=== PATIENT | female | born 1965 | race Caucasian/White ===

== ENCOUNTER → 2019-01-14 10:25 | Outpatient (CLI) | payer MEDICARE, SELFPAY ==
[2019-01-14 10:00] VITALS: BMI 38.5
[2019-01-14 12:10] LABS: Absolute Lymphocyte Count 1.38 X10^3/uL (0.83-4.51); Absolute Neutrophil Count 4.5 X10^3/uL (2.0-7.7); Basophil# 0.03 X10^3/uL; Basophil% 0.5 % (0-1); Eosinophils% 1.6 % (0-5); Hematocrit 41.2 % (37-47); Hemoglobin 12.6 g/dL (12.0-15.0); Lymphocyte # 1.38 X10^3/ul (4.0); Lymphocyte % 21.6 % (19-41); Mean Corp Hgb Conc 30.6 g/dL (32-36); Mean Corpuscular Hgb 25.6 pg (27.0-32.0); Mean Corpuscular Volume 83.7 fL (81-99); Mean Platelet Vol. 10.6 fl (6.2-12.0); Monocyte# 0.34 X10^3/uL; Monocyte% 5.3 % (0-10); NRBC Flagged by Analyzer 0 % (0-5); Neutrophil # 4.52 X10^3/uL (2.7-7.7); Neutrophil % 70.7 % (47-70); Platelet Count 323 K/mm3 (150-450); RBC Distribution Width CV 14.6 % (11.6-14.6); RBC Distribution Width SD 44.4 fl (35.1-43.9); Red Blood Count 4.92 M/mm3 (4.2-5.4); White Blood Count 6.4 K/mm3 (4.4-11.0)
[2019-01-14 12:38] LABS: ALB/GLOB Ratio 0.7 RATIO (0.9-2.4); AST(SGOT) 24 U/L (15-37); Alanine Aminotransfer ALT/SGPT 37 U/L (13-56); Albumin, Serum 3.6 g/dL (3.2-5.0); Alkaline Phosphatase 93 U/L (45-117); Anion Gap 7 (5-15); BUN 8 mg/dL (7-18); BUN/Creat Ratio 11.8 RATIO (10-20); Calcium,Total 9.3 mg/dL (8.5-10.1); Chloride 102 mmol/L (98-107); Cholesterol 249 mg/dL (200); Creatinine, Serum 0.68 mg/dL (0.55-1.02); EST Glomerular Filtration Rate 96 mL/min (>60); Est Glom Filt Rate - Afr Amer 117 mL/min (>60); Glucose 107 mg/dL (74-106); High Density Lipoprotein 70 mg/dL; Potassium 3.7 mmol/L (3.5-5.1); Protein, Total 8.6 g/dL (6.4-8.2); Sodium Level 138 mmol/L (136-145); Triglycerides 191 mg/dL; Very Low Density Lipoprotein 38 mg/dL (5-40)
== END ==
PROVIDERS: PCP Internal Medicine; Visit Provider Internal Medicine
DX: I10 Essential (primary) hypertension (principal); G47.30 Sleep apnea, unspecified; E66.9 Obesity, unspecified
CPT/HCPCS: 36415; 80053; 80061; 85025

== ENCOUNTER → 2019-01-26 09:57 | Outpatient (CLI) | payer MEDICARE, SELFPAY ==
[2019-01-14 10:00] VITALS: BMI 38.5
--- NOTE | 2019-01-26 10:01 | EKG12_ITS ---
Test Reason : Blood Pressure : / mmHG Vent. Rate : 079 BPM Atrial Rate : 079 BPM P-R Int : 142 ms QRS Dur : 084 ms QT Int : 382 ms P-R-T Axes : 024 008 028 degrees QTc Int : 438 ms Normal sinus rhythm Normal ECG Confirmed by DALIA MICHELE, CRISTINA ([id number]), assignment desk editor BONNIE CHRISTIAN ([id number]) on 01/27/2019 9:49:43 AM Referred By: Esme Beckman Confirmed By:CRISTINA GÓMEZ MD
== END ==
PROVIDERS: Family Provider Internal Medicine; PCP Internal Medicine; Referring Provider Internal Medicine; Visit Provider Internal Medicine
DX: G47.10 Hypersomnia, unspecified (principal); I10 Essential (primary) hypertension
CPT/HCPCS: 93005; 95810

== ENCOUNTER 2019-02-03 15:30 | Outpatient (RCR) | payer MEDICARE, SELFPAY ==
[2019-01-14 10:00] VITALS: BMI 38.5
--- NOTE | 2019-02-03 16:15 | HP.PTEVAL_ITS ---
Patient's Visit Information EDNA MELÉNDEZ is a 53 year old F referred to Physical Therapy by Esme Beckman MD with a diagnosis of Bilateral Knee Pain. Date of Evaluation: 02/03/19 Physical Therapist: Itzel Forte DPT - Visit Plan Frequency: 2x /Week Duration: 4 Weeks Plan: Aquatics: focus on LE and core s.s - Subjective Findings: She has has knee pain for a long time- they are about the same. Insidous onset- had x-rays which showed OA. Pain is located around the whole knee- no radiating pain. Describes the pain as dull and achy. Agg: walking to much, sitting to long. Worst: 8/10. Eases: pillow between knees at night. Best: 0/10. Better in the AM. Sleep: disturbed- side sleeper- pillow between the knees. Has had therapy on her knees but not recently. Work: does not work- on disability. She reports that she is on the couch a lot and does not move a lot. X-rays taken of both knees but it has been awhile. Has not had injections in her knees. They talked about Gel shots but they have not taken it any further. PMHx/Meds no changes since scanned in chart. - Objective Posture: FH, RS- can correct but does not maintain. Gait: slight deviation. decreased heel/toe pattern- decreased epifanio. Stairs: asc/desc recip with 2 HR- significant use of HR for ascent for propulsion and poor control with descent. HR/TR: able with UE A for balance reports pain with both. SLS: 2-3 seconds bilaterally and reports pain. Palpation: tender along medial and lateral joint lines bilaterally- medial>lateral. ROM: Left 10-110 degrees Right: 15-115 degrees-reports pain at end range flexion. Strength: Core: poor. Hip: flexion/abd: 4/5, IR/ER: 3+/5, Extn: 4+/5, Add: 4+/5, Knee: 4/5, Ankle: 5/5. Required multiple attempts to follow directions and give appropriate resistance to testing. Flex: HS: severe, Gastroc: moderate. Special Test: Lakeisha: positive bilaterally - Goals Goal 1:: Patient will be I with HEP and progression Goal Time Frame: 4-6 Weeks Goal 2:: Patient will ambulate with a normalized gait pattern Goal Time Frame: 4-6 Weeks Goal 3:: Patient will SLS for 10 sec bilaterally Goal Time Frame: 4-6 Weeks Goal 4:: Patient will report no more than 5/10 pain bilaterally Goal Time Frame: 4-6 Weeks - Rehabilitation Potential Physical Therapy Diagnosis: Patient presents with hypomobility- she has decr eased ROM, strength and muscular endurance leading to increased pain with ADL's. Rehabilitation Potential: Fair - Anticipated Interventions Therapeutic Exercise to Include: Strength training, Endurance training, Balance training, Agility training, Body mechanics, Postural training, Flexibilty training, Gait and locomotor training, In an aquatic setting, Dynamic Lumbar Stabilization For the Purpose of:: To improve muscle performance and motor function, To improve ability to perform ADL's Thank you for the opportunity to evaluate your patient. For Medicare and Medicare HMO plans, please review the plan of care and approve it. It will need to be FAXED BACK to us at [phone] for Medicare purposes. For Medicare only, by signing this I certify the plan of care. Please let me know if there are questions or concerns regarding this plan of care. Physician Signature: Date:
== END 2019-02-03 19:00 | disposition home or self-care (01) ==
LOC: PT 15:30
PROVIDERS: Family Provider Internal Medicine; PCP Internal Medicine; Referring Provider Internal Medicine; Visit Provider Internal Medicine
DX: M19.90 Unspecified osteoarthritis, unspecified site (principal)
CPT/HCPCS: 97161

== ENCOUNTER → 2019-03-24 20:05 | Outpatient (CLI) | payer MEDICARE, MEDICAID, SELFPAY ==
[2019-01-14 10:00] VITALS: BMI 38.5
== END ==
PROVIDERS: Family Provider Internal Medicine; PCP Internal Medicine; Referring Provider Psychiatry & Neurology Psychiatry; Visit Provider Psychiatry & Neurology Psychiatry
DX: G47.33 Obstructive sleep apnea (adult) (pediatric) (principal); I10 Essential (primary) hypertension; I44.7 Left bundle-branch block, unspecified; E88.81 Metabolic syndrome and other insulin resistance; F32.9 Major depressive disorder, single episode, unspecified; F41.9 Anxiety disorder, unspecified; E66.01 Morbid (severe) obesity due to excess calories; Z68.38 Body mass index [BMI] 38.0-38.9, adult
CPT/HCPCS: 95811

== ENCOUNTER → 2019-06-03 11:14 | Outpatient (CLI) | payer MEDICARE, SELFPAY ==
[2019-06-02 12:54] VITALS: BMI 38.5
[2019-06-03 12:43] LABS: Hemoglobin A1c 5.7 % (4.2-6.3)
[2019-06-03 12:53] LABS: ALB/GLOB Ratio 0.8 RATIO (0.9-2.4); AST(SGOT) 23 U/L (15-37); Alanine Aminotransfer ALT/SGPT 35 U/L (13-56); Albumin, Serum 3.6 g/dL (3.2-5.0); Alkaline Phosphatase 87 U/L (45-117); Anion Gap 7 (5-15); BUN 12 mg/dL (7-18); BUN/Creat Ratio 20.3 RATIO (10-20); Calcium,Total 9.4 mg/dL (8.5-10.1); Chloride 101 mmol/L (98-107); Cholesterol 266 mg/dL (200); Creatinine, Serum 0.59 mg/dL (0.55-1.02); EST Glomerular Filtration Rate 113 mL/min (>60); Est Glom Filt Rate - Afr Amer 137 mL/min (>60); Globulin 4.8 g/dL (2.2-4.2); Glucose 90 mg/dL (74-106); High Density Lipoprotein 67 mg/dL; Potassium 3.8 mmol/L (3.5-5.1); Protein, Total 8.4 g/dL (6.4-8.2); Sodium Level 137 mmol/L (136-145); T4 Free Direct 0.95 ng/dL (0.76-1.46); Thyroid Stim Hormone (TSH) 1.08 uIU/mL (0.358-3.74); Triglycerides 201 mg/dL; Very Low Density Lipoprotein 40 mg/dL (5-40)
== END ==
PROVIDERS: PCP Internal Medicine; Referring Provider Internal Medicine Endocrinology, Diabetes & Metabolism; Visit Provider Internal Medicine Endocrinology, Diabetes & Metabolism
DX: I10 Essential (primary) hypertension (principal); E78.2 Mixed hyperlipidemia; E04.2 Nontoxic multinodular goiter; R73.09 Other abnormal glucose
CPT/HCPCS: 36415; 80053; 80061; 83036; 84439; 84443

== ENCOUNTER → 2019-06-05 12:44 | Outpatient (CLI) | payer MEDICARE, SELFPAY ==
[2019-06-02 12:54] VITALS: BMI 38.5
== END ==
PROVIDERS: PCP Internal Medicine; Referring Provider Nurse Practitioner Acute Care; Visit Provider Nurse Practitioner Acute Care
DX: G47.10 Hypersomnia, unspecified (principal)

== ENCOUNTER → 2019-06-08 12:26 | Outpatient (CLI) | payer MEDICARE, SELFPAY ==
[2019-06-02 12:54] VITALS: BMI 38.5
--- NOTE | 2019-08-04 11:10 | US_ITS ---
STUDY: THYROID ULTRASOUND REASON FOR EXAM: Female, 53 years old. NODULE -- PREVIOUS FILMS DONE AT [facility] NOT AVAILABLE TECHNIQUE: Ultrasound evaluation of the thyroid was performed with real-time and static minor-scale imaging. COMPARISON: None. FINDINGS: RIGHT LOBE: The right lobe of the thyroid gland is enlarged and measures 5.7 cm x 1.9 cm x 1.6 cm. There is a homogeneous echotexture. 2 nodules are seen within the right lobe. There is a 6 mm x 6 mm x 4 mm solid nodule in the midportion of the lobe. A solid and cystic nodule measuring 6 mm x 5 mm x 5 mm is also seen in the lower lobe. LEFT LOBE: The left lobe of the thyroid gland is enlarged and measures 6.5 cm x 4.5 cm x 4.1 cm. There is a heterogeneous echotexture. There is a dominant hypoechoic solid nodule in the midpole of the left lobe measuring 5.6 cm x 4.6 cm by 3.5 cm. ISTHMUS: The isthmus measures 5 mm. The regional lymph nodes are normal. US/Thyroid IMPRESSION: Complex solid nodule in the left lobe of the thyroid measuring 5.6 cm x 4.6 cm x 3.5 cm. Biopsy recommended. 2. Subcentimeters nodules in the right lobe. Electronically Signed: Stew Vasquez, at 15:21 EDT , Service support ,
== END ==
PROVIDERS: PCP Internal Medicine; Referring Provider Nurse Practitioner Acute Care; Visit Provider Nurse Practitioner Acute Care
DX: G47.10 Hypersomnia, unspecified (principal)

== ENCOUNTER → 2019-08-04 10:56 | Outpatient (CLI) | payer MEDICARE, MEDICAID, SELFPAY ==
[2019-06-02 12:54] VITALS: BMI 38.5
== END ==
PROVIDERS: PCP Internal Medicine; Referring Provider Internal Medicine; Visit Provider Internal Medicine
DX: E04.2 Nontoxic multinodular goiter (principal)
CPT/HCPCS: 76536

== ENCOUNTER → 2020-07-08 12:35 | Outpatient (CLI) | payer MEDICARE, MEDICAID, SELFPAY ==
[2019-06-02 12:54] VITALS: BMI 38.5
--- NOTE | 2020-07-08 12:39 | BI_ITS ---
MAMMOGRAPHY - BILATERAL SCREENING REASON FOR EXAM: Female, 54 years old. Routine annual screening examination. 2-3 week history of breast lumps in the upper outer quadrant of the left breast. PERTINENT HISTORY: Non-contributory. TECHNIQUE: Digital bilateral breast portia (3D mammographic acquisition) in the CC and MLO projections. 2-D mediolateral oblique (MLO) and craniocaudad (CC) views of both breasts were obtained. CAD: Full Field Digital Mammography with Computer Added Detection was performed. COMPARISON: No comparison mammograms available at this time. If any prior films become available, an addendum to this report can be generated. FINDINGS: Breast Composition: There are scattered areas of fibroglandular density. There is a 1 cm nodule in the retroareolar region of the left breast. Correlation with ultrasound is recommended. No other significant abnormalities are identified. BI/SCRN MAMM (CAD)W/PORTIA BILAT IMPRESSION: 1 cm nodule in the retroareolar region of the left breast as described. Correlation with ultrasound is recommended. ASSESSMENT CATEGORY: BIRADS Category 0: Incomplete. Need additional imaging evaluation. A letter regarding these results will be sent to the patient by the facility within 30 days. Approximately 10% of breast cancers are not detected by mammography. A normal mammogram should not delay biopsy of a clinically suspicious abnormality. [id number] Electronically Signed: Stew Vasquez MD at 14:00 EDT , Service support ,
== END ==
PROVIDERS: PCP Internal Medicine; Referring Provider Internal Medicine Endocrinology, Diabetes & Metabolism; Visit Provider Internal Medicine Endocrinology, Diabetes & Metabolism
DX: Z12.31 Encounter for screening mammogram for malignant neoplasm of breast (principal); N63.20 Unspecified lump in the left breast, unspecified quadrant
CPT/HCPCS: 77063; 77067

== ENCOUNTER → 2020-07-11 14:50 | Outpatient (CLI) | payer MEDICARE, MEDICAID, SELFPAY ==
[2019-06-02 12:54] VITALS: BMI 38.5
--- NOTE | 2020-07-11 14:54 | US_ITS ---
STUDY: ULTRASOUND BREAST - LEFT REASON FOR EXAM: Female, 54 years old. Abnormal screening mammogram. TECHNIQUE: Axial and longitudinal images of the LEFT breast were performed with a high resolution ultrasound transducer. # OF IMAGES: 11 COMPARISON: Comparison is made with prior mammogram dated 07/08/2020. FINDINGS: LEFT Breast: The mammographic abnormality corresponds to a 1.6 cm x 1.1 cm x 0.8 cm slightly irregular hypoechoic nodule with some posterior acoustical shadowing. This is at the 6 o''clock position of the breast at 2 cm from nipple. Biopsy is recommended. US/Breast Limited Unilateral IMPRESSION: 1.6 cm x 1.1 cm x 0.8 cm slightly irregular hypoechoic nodule with posterior acoustical shadowing at the 6 o''clock position of the breast at 2 cm from the nipple. A biopsy recommended. ASSESSMENT CATEGORY: BIRADS Category 4: Suspicious - Biopsy Should Be Considered. A letter regarding these results will be sent to the patient by the facility within 30 days. Electronically Signed: Stew Vasquez MD at 15:36 EDT , Service support ,
== END ==
PROVIDERS: PCP Internal Medicine; Referring Provider Internal Medicine Endocrinology, Diabetes & Metabolism; Visit Provider Internal Medicine Endocrinology, Diabetes & Metabolism
DX: N63.20 Unspecified lump in the left breast, unspecified quadrant (principal); R92.8 Other abnormal and inconclusive findings on diagnostic imaging of breast
CPT/HCPCS: 76642

== ENCOUNTER → 2020-07-14 | Outpatient (CLI) | payer MEDICARE, MEDICAID, SELFPAY ==
--- NOTE | 2020-07-14 | BRBX_PTH ---
PATIENT: EDNA CAMACHO LOC: [place] U#:[id number] AGE/SX: 54/F ROOM: RE07/14/[address]: Dr. Corie Bell MD : 1965 BED: DIS: 07/14/2020 SPEC #: [id number] RECD: 07/14/20 15:23 STATUS: TORIE KIRILL #: [id number] FREDY: 07/14/20 00:[address]: Corie Bell DEPT: SURGICAL PATHOLOGY RECD BY: Fortunato Simmons ENTERED: 07/15/20 08:15 SP TYPE: BREAST BX OT DR: Dr. Esme Beckman MD Tissues: Left breast, NOS Procedures: Surgery Specimen Level IV HEADER OPERATION: Left breast biopsy PRE-OP DIAGNOSIS: Left breast mass TISSUE SUBMITTED: Left breast tissue 6 o?clock, 2 cm from nipple MICROSCOPIC DIAGNOSIS Left breast mass, 6 o?clock, 2 cm from nipple, core biopsy: Consistent with fragments of intraductal papilloma with fibrocystic changes and intraductal hyperplasia with focal atypia. See comment. JERI:lorene 07/18/2020 COMMENT Correlation with clinical, radiologic findings and appropriate follow up are necessary. Case has been reviewed in consultation with Dr. Villeda who concurs with the above diagnosis. IDC:AM MICROSCOPIC DESCRIPTION Slides are reviewed. GROSS DESCRIPTION Received in fixative is one container labeled with the patient name and designated left breast. The specimen consists of multiple elongated fragments of edwards-yellow fibroadipose tissue that in aggregate measure 1 x 0.2 x 0.1 cm. The entire specimen is submitted in one cassette. / JERI:lorene 07/15/20 TC:5 CPT: 07718
[2020-07-14 10:07] VITALS: BMI 39.6
== END | disposition home or self-care (01) ==
LOC: LABSPEC 15:52
PROVIDERS: PCP Internal Medicine; Referring Provider Surgery; Visit Provider Surgery
DX: D24.2 Benign neoplasm of left breast (principal)
CPT/HCPCS: 88305

== ENCOUNTER → 2020-09-14 | Outpatient (CLI) | payer MEDICARE, MEDICAID, SELFPAY ==
[2020-09-14 11:23] VITALS: BMI 40.6
== END | disposition home or self-care (01) ==
PROVIDERS: PCP Internal Medicine; Visit Provider Physician Assistant
DX: L08.9 Local infection of the skin and subcutaneous tissue, unspecified (principal); B95.8 Unspecified staphylococcus as the cause of diseases classified elsewhere
CPT/HCPCS: 87070; 87077; 87186; 87205

== ENCOUNTER → 2020-11-01 11:27 | Outpatient (CLI) | payer MEDICARE, MEDICAID, SELFPAY ==
[2020-11-01 12:13] LABS: Absolute Lymphocyte Count 1.48 X10^3/uL (0.83-4.51); Absolute Neutrophil Count 3.9 X10^3/uL (2.0-7.7); Basophil# 0.03 X10^3/uL; Basophil% 0.5 % (0-1); Eosinophil# 0.08 X10^3/uL; Eosinophils% 1.4 % (0-5); Hemoglobin 10.9 g/dL (12.0-15.0); Lymphocyte # 1.48 X10^3/ul (0.83-4.51); Lymphocyte % 25.3 % (19-41); Mean Corp Hgb Conc 29.5 g/dL (32-36); Mean Corpuscular Hgb 22.5 pg (27.0-32.0); Mean Corpuscular Volume 76.3 fL (81-99); Mean Platelet Vol. 9.9 fl (6.2-12.0); Monocyte# 0.34 X10^3/uL; Monocyte% 5.8 % (0-10); NRBC Flagged by Analyzer 0 % (0-5); Neutrophil # 3.91 X10^3/uL (2.7-7.7); Neutrophil % 66.8 % (47-70); Platelet Count 384 K/mm3 (150-450); RBC Distribution Width CV 17.9 % (11.6-14.6); RBC Distribution Width SD 48.5 fl (35.1-43.9); Red Blood Count 4.85 M/mm3 (4.2-5.4); White Blood Count 5.9 K/mm3 (4.4-11.0)
[2020-11-01 12:50] LABS: ALB/GLOB Ratio 0.8 RATIO (0.9-2.4); AST(SGOT) 15 U/L (15-37); Alanine Aminotransfer ALT/SGPT 30 U/L (13-56); Albumin, Serum 3.6 g/dL (3.2-5.0); Alkaline Phosphatase 76 U/L (45-117); Anion Gap 6 (5-15); BUN 13 mg/dL (7-18); BUN/Creat Ratio 25.3 RATIO (10-20); Calcium,Total 9.1 mg/dL (8.5-10.1); Chloride 105 mmol/L (98-107); Cholesterol 232 mg/dL (200); Creatinine, Serum 0.51 mg/dL (0.55-1.02); EST Glomerular Filtration Rate 132 mL/min (>60); Est Glom Filt Rate - Afr Amer 160 mL/min (>60); Globulin 4.6 g/dL (2.2-4.2); Glucose 91 mg/dL (74-106); High Density Lipoprotein 68 mg/dL; Potassium 3.7 mmol/L (3.5-5.1); Protein, Total 8.2 g/dL (6.4-8.2); Sodium Level 137 mmol/L (136-145); Triglycerides 153 mg/dL; Very Low Density Lipoprotein 31 mg/dL (5-40)
[2020-11-01 16:57] LABS: Ferritin 9 ng/mL (8-252); Iron 37 ug/dL (50-170); Iron Binding Capacity,Total 411 ug/dL (250-450)
== END ==
PROVIDERS: PCP Internal Medicine; Referring Provider Internal Medicine; Visit Provider Internal Medicine
DX: I10 Essential (primary) hypertension (principal); D64.9 Anemia, unspecified
CPT/HCPCS: 36415; 80053; 80061; 82728; 83540; 83550; 85025

== ENCOUNTER → 2020-12-27 11:14 | Outpatient (CLI) | payer MEDICARE, MEDICAID, SELFPAY ==
--- NOTE | 2020-12-27 11:17 | US_ITS ---
STUDY: THYROID ULTRASOUND REASON FOR EXAM: Female, 55 years old. Thyroid Nodules TECHNIQUE: Ultrasound evaluation of the thyroid was performed with real-time and static minor-scale imaging. COMPARISON: 08/04/2019 FINDINGS: RIGHT LOBE: The right lobe of the thyroid gland measures 2.6 x 2.0 x 1.4 cm. There is a heterogeneous echotexture. Nodule 1: No change in the 7 x 6 x 3 mm mixed cystic and solid hypoechoic wider than tall smoothly marginated nodule in no echogenic foci (TR 3) in the anterior right lobe consistent with an adenoma. Nodule 2: No change in a 4 x 6 x 6 mm solid hypoechoic wider than tall smoothly marginated nodule with no echogenic foci (TR 4) in the posterior right lobe consistent with an adenoma. LEFT LOBE: The left lobe of the thyroid gland measures 6.5 x 5.5 x 3.9 cm. There is a heterogeneous echotexture. Nodule 3: No change in this 60 x 32 x 42 mm mixed cystic and solid isoechoic water than tall smoothly marginated nodule and no echogenic foci (TR 3) in the left lobe for which ultrasound-guided biopsy is recommended if never performed. ISTHMUS: The isthmus measures 4 mm thick. . The regional lymph nodes are normal. US/Thyroid IMPRESSION: No change in multinodular thyroid gland with a dominant nodule in left lobe for which ultrasound-guided biopsy is recommended if never performed. Follow-up ultrasound is recommended in 1 year. Electronically Signed: Royce Lino MD at 10:48 EDT Tel , Service support ,
== END ==
PROVIDERS: PCP Internal Medicine; Referring Provider Internal Medicine; Visit Provider Internal Medicine
DX: E04.2 Nontoxic multinodular goiter (principal)
CPT/HCPCS: 76536

== ENCOUNTER → 2022-03-02 | Outpatient (CLI) | payer MEDICARE, MEDICAID, SELFPAY ==
[2022-03-02 12:28] LABS: Absolute Lymphocyte Count 1.32 X10^3/uL (0.83-4.51); Absolute Neutrophil Count 4.1 X10^3/uL (2.0-7.7); Basophil# 0.05 X10^3/uL; Basophil% 0.9 % (0-1); Eosinophil# 0.08 X10^3/uL; Eosinophils% 1.4 % (0-5); Hematocrit 35.8 % (37-47); Hemoglobin 10.6 g/dL (12.0-15.0); Lymphocyte # 1.32 X10^3/ul (0.83-4.51); Lymphocyte % 22.6 % (19-41); Mean Corp Hgb Conc 29.6 g/dL (32-36); Mean Corpuscular Volume 74.3 fL (81-99); Mean Platelet Vol. 9.4 fl (6.2-12.0); Monocyte# 0.32 X10^3/uL; Monocyte% 5.5 % (0-10); NRBC Flagged by Analyzer 0 % (0-5); Neutrophil # 4.07 X10^3/uL (2.7-7.7); Neutrophil % 69.4 % (47-70); Platelet Count 421 K/mm3 (150-450); RBC Distribution Width CV 16.6 % (11.6-14.6); Red Blood Count 4.82 M/mm3 (4.2-5.4); White Blood Count 5.9 K/mm3 (4.4-11.0)
[2022-03-02 13:04] LABS: ALB/GLOB Ratio 0.8 RATIO (0.9-2.4); AST(SGOT) 18 U/L (15-37); Alanine Aminotransfer ALT/SGPT 29 U/L (13-56); Albumin, Serum 3.5 g/dL (3.2-5.0); Alkaline Phosphatase 85 U/L (45-117); Anion Gap 2 (5-15); BUN 11 mg/dL (7-18); BUN/Creat Ratio 16.2 RATIO (10-20); Calcium,Total 9.4 mg/dL (8.5-10.1); Chloride 106 mmol/L (98-107); Cholesterol 247 mg/dL (200); Creatinine, Serum 0.68 mg/dL (0.55-1.02); EST Glomerular Filtration Rate 95 mL/min (>60); Est Glom Filt Rate - Afr Amer 115 mL/min (>60); Globulin 4.6 g/dL (2.2-4.2); Glucose 119 mg/dL (74-106); High Density Lipoprotein 67 mg/dL; Potassium 3.7 mmol/L (3.5-5.1); Protein, Total 8.1 g/dL (6.4-8.2); Sodium Level 138 mmol/L (136-145); Triglycerides 130 mg/dL; Very Low Density Lipoprotein 26 mg/dL (5-40)
[2022-03-02 14:01] LABS: Ferritin 6 ng/mL (8-252); Iron 27 ug/dL (50-170); Iron Binding Capacity,Total 429 ug/dL (250-450); PERCENT IRON SATURATION 6.3 % (15.0-55.0)
== END | disposition home or self-care (01) ==
LOC: BIMLAB 11:26
PROVIDERS: PCP Internal Medicine; Referring Provider Physician Assistant; Visit Provider Physician Assistant
DX: I10 Essential (primary) hypertension (principal); E78.5 Hyperlipidemia, unspecified; D64.9 Anemia, unspecified
CPT/HCPCS: 36415; 80053; 80061; 82728; 83540; 83550; 84443; 85025

== ENCOUNTER → 2023-03-11 | Outpatient (CLI) | payer MEDICARE, MEDICAID, SELFPAY ==
[2023-03-11 15:34] LABS: Absolute Lymphocyte Count 1.43 X10^3/uL (0.83-4.51); Absolute Neutrophil Count 5.2 X10^3/uL (2.0-7.7); Basophil# 0.03 X10^3/uL; Basophil% 0.4 % (0-1); Eosinophil# 0.09 X10^3/uL; Eosinophils% 1.3 % (0-5); Hematocrit 36.5 % (37-47); Hemoglobin 10.8 g/dL (12.0-15.0); Lymphocyte # 1.43 X10^3/ul (0.83-4.51); Lymphocyte % 20.2 % (19-41); Mean Corp Hgb Conc 29.6 g/dL (32-36); Mean Corpuscular Hgb 22.5 pg (27.0-32.0); Mean Corpuscular Volume 76.2 fL (81-99); Mean Platelet Vol. 9.8 fl (6.2-12.0); Monocyte# 0.34 X10^3/uL; Monocyte% 4.8 % (0-10); NRBC Flagged by Analyzer 0 % (0-5); Neutrophil # 5.16 X10^3/uL (2.7-7.7); Neutrophil % 72.9 % (47-70); Platelet Count 416 K/mm3 (150-450); RBC Distribution Width CV 17.5 % (11.6-14.6); RBC Distribution Width SD 48.3 fl (35.1-43.9); Red Blood Count 4.79 M/mm3 (4.2-5.4); White Blood Count 7.1 K/mm3 (4.4-11.0)
[2023-03-11 16:20] LABS: ALB/GLOB Ratio 0.8 RATIO (0.9-2.4); AST(SGOT) 19 U/L (15-37); Alanine Aminotransfer ALT/SGPT 27 U/L (13-56); Albumin, Serum 3.5 g/dL (3.2-5.0); Alkaline Phosphatase 83 U/L (45-117); Anion Gap 6 (5-15); BUN 12 mg/dL (7-18); Calcium,Total 8.8 mg/dL (8.5-10.1); Chloride 105 mmol/L (98-107); Cholesterol 235 mg/dL (200); Creatinine, Serum 0.86 mg/dL (0.55-1.02); EST Glomerular Filtration Rate 72 mL/min (>60); Est Glom Filt Rate - Afr Amer 87 mL/min (>60); Globulin 4.6 g/dL (2.2-4.2); Glucose 136 mg/dL (74-106); High Density Lipoprotein 65 mg/dL; Protein, Total 8.1 g/dL (6.4-8.2); Sodium Level 139 mmol/L (136-145); Triglycerides 266 mg/dL; Very Low Density Lipoprotein 53 mg/dL (5-40)
[2023-03-12 15:40] LABS: Hemoglobin A1c 5.7 % (3.8-5.6)
== END | disposition home or self-care (01) ==
LOC: BIMLAB 13:51
PROVIDERS: PCP Internal Medicine; Referring Provider Internal Medicine; Visit Provider Internal Medicine
DX: I10 Essential (primary) hypertension (principal); R73.9 Hyperglycemia, unspecified
CPT/HCPCS: 36415; 80053; 80061; 83036; 85025

== ENCOUNTER → 2023-03-15 | Outpatient (CLI) | payer MEDICARE, MEDICAID, SELFPAY ==
--- NOTE | 2023-03-15 16:12 | US_ITS ---
STUDY: THYROID ULTRASOUND REASON FOR EXAM: Female, 57 years old. Known nodules TECHNIQUE: Ultrasound evaluation of the thyroid was performed with real-time and static minor-scale imaging. COMPARISON: 12/27/2020 FINDINGS: RIGHT LOBE: The right lobe of the thyroid gland measures 5.3 x 1.9 x 1.3 cm. There is a heterogeneous echotexture. There are multiple stable solid and cystic nodules identified. Largest measures 0.8 x 0.5 x 0.5 cm. This nodule is mixed cystic and solid, anechoic, [id number], smoothly marginated and contains no echogenic foci. TI-RADS points: 1. TI-RADS category: TR1. This nodule is benign and no FNA or follow-up is necessary. LEFT LOBE: The left lobe of the thyroid gland measures 6.6 x 5.7 x 4.0 cm. There is a heterogeneous echotexture. There is a stable complex solid and cystic nodule measuring 6.1 x 5.4 x 4.0 cm This nodule is mixed cystic and solid, hypoechoic, [id number], smoothly marginated and contains no echogenic foci. TI-RADS points: 3. TI-RADS category: TR3. This nodule is mildly suspicious. Recommend FNA evaluation. ISTHMUS: The isthmus measures 0.43 cm. The regional lymph nodes are normal. US/Thyroid IMPRESSION: Enlarged heterogeneous thyroid gland with bilateral solid and cystic nodules unchanged from 2020. Categorization follow-up of the nodules as described above Electronically Signed: Amanuel Angel MD at 16:48 EST ,
--- OUTSIDE RECORDS SUMMARY | 2023-03-15 16:51 | XMS RPT_ITS | CCD ---
Author Name Unknown Address [address] [place] [address] Organization [facility] Care Team Providers Care Cnc Applications Engineer Name Role Phone LEANNA HENSON Attending Unavailable LEANNA HENSON Referring Unavailable LEANNA HENSON Referring Unavailable OZZIE ALVA Attending Unavailable LEANNA HENSON Referring Unavailable Leanna Henson MD Unavailable [phone] Lillian Ray MD Unavailable Avery Francis Unavailable Esme Beckman MD Primary Care Provider Leanna Henson MD Unavailable [phone] Lillian Ray MD Unavailable Avery Francis Unavailable Esme Beckman MD Primary Care Provider Allergies Allergy Classification Reported Allergen(s) Allergy Type Date of Onset Reaction(s) Facility (3 sources) Penicillins; Translations: [PENICILLINS] Propensity to adverse reactions (disorder) 6 [facility] Repository (3 sources) Sulfonamides (Antibiotic); Translations: [SULFA (SULFONAMIDE ANTIBIOTICS)] Propensity to adverse reactions (disorder) 6 [facility] Repository Medications Completed/Discontinued Medications Medication Drug Class(es) Dates Sig (Normalized) Sig (Original) aspirin 81 mg delayed release oral tablet (2 sources) Platelet Aggregation Inhibitor, Nonsteroidal Anti-inflammatory Drug Start: 04-03-2017 take 1 tablet by mouth once daily aspirin, enteric coated (ADULT LOW DOSE ASPIRIN) 81 mg EC tablet Take 1 tablet by mouth once daily. 0 04/03/2017 Active Problems Active Problems Problem Classification Problem Date Documented Date Episodic/Chronic Adjustment disorders (2 sources) Adjustment disorder; Translations: [Adjustment disorder with other symptoms] Onset: 07-17-2010 07-17-2010 Chronic Anxiety disorders (2 sources) Anxiety; Translations: [Anxiety disorder, unspecified] Onset: 03-27-2010 03-27-2010 Chronic Conduction disorders (2 sources) Left bundle branch block; Translations: [Left bundle-branch block, unspecified] Onset: 11-25-2014 11-25-2014 Chronic Disorders of lipid metabolism (2 sources) Mixed hyperlipidemia; Translations: [Mixed hyperlipidemia] Onset: 01-16-2016 01-16-2016 Chronic Essential hypertension (2 sources) Essential hypertension; Translations: [Essential (primary) hypertension] Onset: 05-17-2006 01-07-2015 Chronic Mood disorders (2 sources) Depressive disorder; Translations: [Depression] Onset: 03-27-2010 03-27-2010 Chronic Osteoarthritis (1 source) Primary gonarthrosis, bilateral; Translations: [Bilateral primary osteoarthritis of knee] Chronic Other nutritional; endocrine; and metabolic disorders (2 sources) Obesity, unspecified Onset: 01-27-2018 Chronic Other nutritional; endocrine; and metabolic disorders (2 sources) Obesity; Translations: [Obesity, unspecified] Onset: 12-26-2005 07-22-2007 Chronic Other nutritional; endocrine; and metabolic disorders (2 sources) Metabolic syndrome X; Translations: [Metabolic syndrome] Onset: 02-13-2008 02-13-2008 Chronic Other nutritional; endocrine; and metabolic disorders (2 sources) Obese class II; Translations: [Obesity, unspecified] Onset: 01-27-2018 01-27-2018 Chronic Prolapse of female genital organs (2 sources) Incomplete uterovaginal prolapse; Translations: [Incomplete uterovaginal prolapse] Onset: 06-05-2007 07-22-2007 Chronic Thyroid disorders (4 sources) Non-toxic nodular goiter; Translations: [Nontoxic goiter, unspecified] Onset: 07-08-2007 02-20-2017 Chronic Past or Other Problems Problem Classification Problem Date Documented Date Episodic/Chronic Administrative/social admission (2 sources) Family disruption; Translations: [Other specified problems related to primary support group] Onset: 06-05-2007 11-25-2014 Episodic Nonmalignant breast conditions (2 sources) Hypertrophy of breast; Translations: [Hypertrophy of breast] Onset: 06-05-2007 07-22-2007 Episodic Residual codes; unclassified (2 sources) Family history of ischemic heart disease; Translations: [Family history of ischemic heart disease and other diseases of the circulatory system] Onset: 07-21-2015 07-21-2015 Episodic Residual codes; unclassified (2 sources) Noncompliance with therapeutic regimen; Translations: [Patient's noncompliance with dietary regimen] Onset: 01-16-2016 01-16-2016 Episodic Results Test Name Value Interpretation Reference Range Facil ity Encounters Encounter Date Encounter Type Care Provider Facility Start: 10-12-2021 Telephone encounter Ifeanyi edward DO Work Phone: Orthopaedics Procedures Date Procedure Procedure Detail Performing Clinician Start: 01-01-2006 Mammography Ifeanyi edward V, DO Work Phone: Plan of Treatment Date Care Activity Detail Author Start: 02-10-2023 HPV TESTING HPV TESTING [facility] Start: 02-10-2023 PAP TESTING PAP TESTING [facility] Start: 12-06-2021 LIPID SCREEN LIPID SCREEN [facility] Start: 11-02-2021 Influenza vaccination INFLUENZA (#1) [facility] Start: 11-02-2020 Influenza vaccination INFLUENZA (#1) [facility] Start: 12-07-2019 DIABETES SCREEN DIABETES SCREEN [facility] Start: 10-03-2015 SHINGRIX VACCINE (1 of 2) SHINGRIX V ACCINE (1 of 2) [facility] Start: 06-02-2013 Urine microalbumin profile DTAP,TDAP ,TD (3 - Tdap) [facility] Start: 2010 COLOGUARD (FIT-DNA) COLOGUARD (FIT-D NA) [facility] Start: 2010 Colonoscopy COLONOSCOPY [facility] Start: 2010 COLORECTAL CANCER SCREENING COLORECTAL CANCER SCREENING [facility] Start: [address] COLONOGRAPHY [facility] Start: 2010 FECAL OCCULT BLOOD FECAL OCCULT BLOO D [facility] Start: 2010 SIGMOIDOSCOPY SIGMOIDOSCOPY [facility] Start: 01-01-2007 Mammography MAMMOGRAM [facility] Start: 10-03-1983 ANNUAL PCP TEAM SEGMENT ASSEMBLER OMAR DISEASE VISIT ANNUAL PCP TEAM CHRONIC DISEASE VISIT [facility] Start: 10-03-1983 BP CONTROLLED (<130/80) BP CONTROLLE D (<130/80) [facility] Start: 1970 COVID-19 VACCINE (1) COVID-19 VACCIN E (1) [facility] Start: 04-04-1966 COVID-19 VACCINE (#1) COVID-19 VACCI NE (#1) [facility] Start: 1965 HEPATITIS B (1 of 3 - 3-dose series) HEPATITIS B (1 of 3 - 3-dose series) [facility] Immunizations Immunization Date Immunization Notes Care Provider Hermes cabrera 06-03-2003 diphtheria and tetan us toxoids, adsorbed for pediatric use Ifeanyilamine Valladares V, DO Work Phone: [facility] 11-01-1993 diphtheria and tetan us toxoids, adsorbed for pediatric use Ifeanyi Valladares V, DO Work Phone: [facility] Payers Date Payer Category Payer Medicaid [employer] [facility] [place] [id number] 2019-Present [phone] [address] [place] [address] Medicaid [id number] 2019 Medicare [employer]ARE [id number] 2019-Present [phone] [address] [place] [address] Medicare [id number] 2018 Medicare [employer]ARE [id number] 2018-Present [phone] [address] [place] [address] Medicare [id number] 1965 Unknown [id number] 1965 Unknown [id number] 1965 Unknown [id number] Medicaid [id number] Medicare [id number] Medicare [id number] Social History Date Type Detail Facility Start: 11-22-2011 Tobacco smoking stat us IDIS Never smoked tobacco [facility] Start: 08-26-2020 Alcohol intake Current non-dr accounts payable coordinator of alcohol (finding) [facility] Start: 1965 Sex Assigned At Not on file C [facility] Start: 03-26-2021 End: 04-25-2021 Exposure to SARS-CoV-2 (event) Not sure [facility] Start: 11-22-2011 Tobacco use and exposure Smoke less tobacco non-user [facility] Note 10-13-2021 Telephone Encounter - Chantal Castillo Ma - 10/13/2021 1:53 PM EDTTelephone Encounter - Chantal Castillo Ma - 10/13/2021 1:31 PM EDTTelephone Encounter - Yoly Oliva RN - 10/12/2021 4:28 PM EDT Note Date & Type Note Facility 10-13-2021 Miscellaneous Notes Formattin g of this note might be different from the original. Order signed, printed and mailed to patient at her request. Please sign Handicap parking order. Pt. calling in for renewal of handicap placard. Please call pt when ready for pickup. Yoly Oliva RN documented in this encounter [facility] Note 05-26-2021 Telephone Encounter - Chantal Castillo Ma - 05/26/2021 9:01 AM EDTTelephone Encounter - Chantal Castillo Ma - 05/25/2021 4:13 PM EDT Note Date & Type Note Facility 05-26-2021 Miscellaneous Notes Images from the original note were not included. Ifeanyi Valladares, V, DO You; [facility] Orthopaedic Pool 2 hours ago (6:38 AM) correct- OA of knees is not a permissible excuse for jury duty in the eyes of the court. Physician letters are just recommendations for excuse from jury duty. The ultimate decision is made by the dressage judge. Patient has been contacted with message from Dr. Valladares and verbalized understanding. Patient called in requesting letter to excuse her from Jury Duty d/t osteoarthritis in her knees. Explained to patient that probably would not disqualify her from attending, but she would like for note to be sent to Dr. Valladares. documented in this encounter [facility] History of Past illness Narrative 06-05-2007 Note Date & Type Note Facility documented as of this encounter (statuses as of 05/26/2021) [facility] History of Past illness Narrative 06-05-2007 Note Date & Type Note Facility documented as of this encounter (statuses as of 10/13/2021) [facility] Evaluation note Note Date & Type Note Facility documented in this encounter [facility] Summary Purpose Family History No Family History Records FoundNo Family History Records FoundNo Family History Records Found Advance Directives No Advanced Directives Records FoundNo Advanced Directives Records FoundNo Advanced Directives Records Found Additional Source Comments INFORMATION SOURCE (unrecogn ized section and content) DATE CREATED AUTHOR AUTHOR'S ORGANIZ ATION 08/04/2019 [facility] DATE CREATED AUTHOR AUTHOR'S ORGANIZ ATION 10/14/2021 [facility] Source Comments (unrecognize d section and content) In the event this informatio n is protected by the Federal Confidentiality of Alcohol and Drug Abuse Patient Records regulations: The Federal rules restrict any use of the information to criminally investigate or prosecute any alcohol or drug abuse patient[facility] the event this information is protected by the Federal Confidentiality of Alcohol and Drug Abuse Patient Records regulations: The Federal rules restrict any use of the information to criminally investigate or prosecute any alcohol or drug abuse patient.[facility] Reason for Visit (unrecogniz ed section and content) Reason Comments handicap placard Care Teams (unrecognized sec tion and content) Cnc Applications Engineer Relationship Specialty Start Date End Date Esme Beckman MD [address] [place], [place] [id number] PCP - General Internal Medicine 07/08/19 Leanna Henson MD [address] [place] [address] Endocrinology 04/01/18 Lillian Ray MD [address] [place] [address] [employer] 04/01/18 Avery Francis [address] [place] [address] Cardiology 04/08/18 FOR RECORDS PERTAINING TO PATIENTS WHO ARE OR HAVE BEEN ENROLLED IN A CHEMICAL DEPENDENCY/SUBSTANCEABUSE PROGRAM, SOME INFORMATION MAY BE OMITTED. This clinical summary was aggregated from multiple sources. Caution should be exercised in using it in the provision of clinical care. This summary normalizes information from multiple sources, and as a consequence, information in this document may materially change the coding, format and clinical context of patient data. In addition, data may be omitted in some cases. CLINICAL DECISIONS SHOULD BE BASED ON THE PRIMARY CLINICAL RECORDS. [facility]. provides no warranty or guarantee of the accuracy or completeness of information in this document.
== END | disposition home or self-care (01) ==
PROVIDERS: PCP Internal Medicine; Referring Provider Internal Medicine; Visit Provider Internal Medicine
DX: E04.2 Nontoxic multinodular goiter (principal)
CPT/HCPCS: 76536

== ENCOUNTER → 2023-05-01 | Outpatient (CLI) | payer MEDICARE, MEDICAID, SELFPAY ==
[2023-05-01 17:35] LABS: Thyroid Stim Hormone (TSH) 0.86 uIU/mL (0.358-3.74)
== END | disposition home or self-care (01) ==
LOC: BIMLAB 15:55
PROVIDERS: PCP Internal Medicine; Visit Provider Internal Medicine
DX: I10 Essential (primary) hypertension (principal)
CPT/HCPCS: 36415; 84439; 84443

== ENCOUNTER → 2023-06-12 | Outpatient (CLI) | payer MEDICARE, MEDICAID, SELFPAY ==
--- NOTE | 2023-06-12 10:56 | ECHOCS_ITS ---
Reason For Study: Murmur Procedure This was a 2D Doppler, Color Flow transthoracic echocardiogram. The study was technically difficult. Contrast injection was performed. Exam performed in department. Left Ventricle Normal LV size. The estimated ejection fraction is 60 %. Diastolic function is indeterminate. No regional wall motion abnormalities noted. Right Ventricle Normal RV size. Normal systolic function. Atria Normal left atrium. Normal right atrium. No doppler evidence for ASD. Mitral Valve There is no mitral valve stenosis. No mitral valve insufficiency. Tricuspid Valve There is no tricuspid stenosis. Trivial tricuspid valve insufficiency. Pulmonary artery systolic pressure is 50 mmHg. Aortic Valve Aortic sclerosis, no stenosis. Trisinus/trileaflet aortic valve. There is no aortic stenosis. No aortic valve insufficiency. Pulmonic Valve There is no pulmonic valvular stenosis. No pulmonic valve insufficiency. Great Vessels Normal aortic root. Pericardium/Pleural No pericardial effusion. Medication 22 gauge I.V. with prn adaptor inserted into left arm. Diluted definity 2ml given slow IV push to enhance endocardial definition. MMode/2D Measurements & Calculations LVIDd: 4.9 cm IVSd: 0.76 cm Ao root diam: 3.1 cm LVIDs: 2.9 cm LVPWd: 0.76 cm LA dimension: 3.9 cm RVDd: 3.9 cm FS: 40.6 % LAV(MOD-bp): 66.4 ml LA A4 area: 24.8 cm2 RA A4 area: 17.7 cm2 LAV(MOD-bp) Indexed: 32.6 ml/m2 LAV(MOD-sp2): 51.1 ml LAV(MOD-sp4): 78.5 ml TAPSE: 2.1 cm Time Measurements MV dec time: 0.25 sec Doppler Measurements & Calculations MV E max bridger: 93.7 cm/sec Lat Peak E' Bridger: 16.0 cm/sec Med Peak E' Bridger: 6.0 cm/sec MV A max bridger: 99.9 cm/sec E/E' lat: 5.9 E/E' med: 15.5 MV E/A: 0.94 MV V2 max: 110.7 cm/sec MV P1/2t max bridger: 99.1 cm/sec Ao V2 max: 196.1 cm/sec MV max P.9 mmHg MV P1/2t: 75.8 msec Ao max P.4 mmHg MV V2 mean: 68.3 cm/sec MV dec slope: 383.1 cm/sec2 Ao V2 mean: 134.8 cm/sec MV mean P.2 mmHg MVA(P1/2t): 2.9 cm2 Ao mean P.3 mmHg MV V2 VTI: 28.1 cm Ao V2 VTI: 36.5 cm AV (velocity ratio): 0.92 LV V1 max: 164.0 cm/sec PA V2 max: 153.9 cm/sec TR max bridger: 342.2 cm/sec LV V1 max P.8 mmHg PA max PG (full): 2.1 mmHg TR max P.9 mmHg LV V1 mean P.7 mmHg PA V2 mean: 98.6 cm/sec LV V1 mean: 122.8 cm/sec PA mean PG (full): 0.73 mmHg LV V1 VTI: 33.6 cm ECHO/Echo Complete W/ Contrast Interpretation Summary The estimated ejection fraction is 60 %. Diastolic function is indeterminate. Aortic sclerosis, no stenosis. Ordering Physician: Esme Beckman Referring Physician: Esme Beckman Performed By: Josse Donohue RCS
== END | disposition home or self-care (01) ==
PROVIDERS: PCP Internal Medicine; Referring Provider Internal Medicine; Visit Provider Internal Medicine
DX: R01.1 Cardiac murmur, unspecified (principal)
CPT/HCPCS: 93306; Q9957; A4216; C8929

== ENCOUNTER → 2023-07-02 | Outpatient (CLI) | payer MEDICARE, MEDICAID, SELFPAY ==
--- NOTE | 2023-07-02 13:00 | FLU_PTH ---
PATIENT: EDNA CAMACHO LOC: [place] U#:[id number] AGE/SX: 57/F ROOM: RE07/02/[address]: Dr. London Connolly MD : 1965 BED: DIS: 07/02/2023 SPEC #: [id number] RECD: 07/02/23 15:59 STATUS: TORIE ROY #: [id number] FREDY: 07/02/23 13:[address]: London Connolly DEPT: CYTOLOGY RECD BY: Donna Funk ENTERED: 07/03/23 09:44 SP TYPE: Fluid OTHR DR: Dr. Esme Beckman MD Tissues: A - Thyroid gland, NOS B - Thyroid gland, NOS Procedures: Special Stain Group II Surgery Specimen Level IV Cytospin Fluid Cytology Other HEADER OPERATION: Fine needle aspiration of left thyroid nodule PRE-OP DIAGNOSIS: Left thyroid nodule TISSUE SUBMITTED: A- Left thyroid nodule fluid, B- Left thyroid nodule (smears) DIAGNOSIS CYTOLOGY A. Fine needle aspiration, left thyroid nodule (cytospin and cellblock): Consistent with benign follicular nodule (Foley Category II). See comment. B. Fine needle aspiration, left thyroid nodule (smears): Consistent with benign follicular nodule (Foley Category II). See comment. /mr 07/04/23 COMMENT A&B. The Foley System for thyroid diagnostic categorization was used in the evaluation of this case. The specimen is adequate for evaluation. CYTOLOGY STUDY Slides are reviewed. CYTOLOGY GROSS A. Received is 40 ml of red cloudy fluid labeled with the patient's name and and designated per the requisition as Left thyroid nodule fluid. Submitted for cytology preparation including cell block. B. Received are 4 smears labeled with the patient's name and designated per the requisition as Left thyroid nodule. Submitted for staining. Mr 07/03/23 TC:5 CPT: [id number]
== END | disposition home or self-care (01) ==
LOC: LABSPEC 16:19
PROVIDERS: PCP Internal Medicine; Referring Provider Surgery; Visit Provider Surgery
DX: E04.1 Nontoxic single thyroid nodule (principal)
CPT/HCPCS: 88108; 88161; 88305; 88313

== ENCOUNTER → 2023-11-21 | Outpatient (CLI) | payer MEDICARE, MEDICAID, SELFPAY | END | disposition home or self-care (01) | LOC: LAB.FUTURE 14:04 | PROVIDERS: PCP Internal Medicine; Visit Provider Nurse Practitioner Family | DX: I10 Essential (primary) hypertension (principal); E04.2 Nontoxic multinodular goiter; D50.9 Iron deficiency anemia, unspecified; R73.03 Prediabetes; E78.5 Hyperlipidemia, unspecified ==

== ENCOUNTER → 2023-12-25 | Outpatient (CLI) | payer MEDICARE, MEDICAID, SELFPAY ==
--- OUTSIDE RECORDS SUMMARY | 2023-12-25 11:53 | XMS RPT_ITS | CCD ---
Author Organization [facility] Inform ion Partnership [facility] Care Team Providers Care Mental Telepathist Name Role Phone LEANNA BETTS Attending Unavailable LEANNA BETTS Referring Unavailable LEANNA BETTS Referring Unavailable OZZIE LY Attending Unavailable LEANNA BETTS Referring Unavailable Leanna Betts MD Unavailable [phone] Lillian Ray MD Unavailable Avery Francis Unavailable Esme Beckman MD Primary Care Provider Leanna Betts MD Unavailable Flor MICHELE, Lillian Unavailable Avery Francis Unavailable Esme Beckman MD Primary Care Provider Leanna Betts MD Unavailable Lillian Ray MD Unavailable Avery Francis MD Unavailable Esme Beckman MD Primary Care Provider ESME BECKMAN Primary Care Unavailable IFEANYI VALLADARES Attending Unavailable ESME BECKMAN Primary Care Unavailable IFEANYI VALLADARES Referring Unavailable Allergies Allergy Classification Reported Allergen(s) Allergy Type Date of Onset Reaction(s) Facility (7 sources) Penicillins; Translations: [PENICILLINS] Propensity to adverse reactions (disorder) 6 [facility] [place] Repository (7 sources) Sulfonamides (Antibiotic); Translations: [SULFA (SULFONAMIDE ANTIBIOTICS)] Propensity to adverse reactions (disorder) [address] [place] [address] Repository Medications Current Medications Medication Drug Class(es) Dates Sig (Normalized) Sig (Original) aspirin 81 mg delayed release oral tablet (5 sources) Platelet Aggregation Inhibitor, Nonsteroidal Anti-inflammatory Drug Start: 04-03-2017 take 1 tablet by mouth once daily aspirin, enteric coated (ADULT LOW DOSE ASPIRIN) 81 mg EC tablet Take 1 tablet by mouth once daily. 04/03/2017 Active Comment on above: Take 1 tablet by corey th once daily. atorvastatin 10 mg oral tablet (1 source) HMG-CoA Reductase Inhibitor take 1 tablet by mouth once daily atorvastatin (LIPITOR) 10 mg tablet Take 10 mg by mouth once daily. Active ibuprofen 800 mg oral tablet (5 sources) Nonsteroidal Anti-inflammatory Drug Start: 08-24-2019 take 1 tablet by mouth every eight hours as needed for pain ibuprofen (MOTRIN) 800 mg tablet Indications: Primary osteoarthritis of left knee Take 1 tablet by mouth every 8 hours as needed. FOR PAIN. 90 tablet 08/24/2019 Active Comment on above: Take 1 tablet by corey th every 8 hours as needed. FOR PAIN. iron,carb/vit C/vit B12/folic (IRON 100 PLUS ORAL) (1 source) take 1 tablet by mouth once daily iron,carb/vit C/vit B12/folic (IRON 100 PLUS ORAL) Take 1 tablet by mouth once daily. Active lisinopril 10 mg oral tablet (5 sources) Angiotensin Converting Enzyme Inhibitor Start: 12-06-2016 take 1 tablet by mouth once daily lisinopril (PRINIVIL) 10 mg tablet Take 1 tablet by mouth once daily. 30 tablet 6 12/06/2016 Active Comment on above: Take 1 tablet by corey th once daily. Problems Active Problems Problem Classification Problem Date Documented Date Episodic/Chronic Adjustment disorders (5 sources) Adjustment disorder; Translations: [Adjustment disorder with other symptoms] Onset: 07-17-2010 07-17-2010 Chronic Anxiety disorders (5 sources) Anxiety; Translations: [Anxiety disorder, unspecified] Onset: 03-27-2010 03-27-2010 Chronic Conduction disorders (5 sources) Left bundle branch block; Translations: [Left bundle-branch block, unspecified] Onset: 11-25-2014 11-25-2014 Chronic Disorders of lipid metabolism (8 sources) Mixed hyperlipidemia; Translations: [Mixed hyperlipidemia] Onset: 12-26-2005 Resolved: 01-16-2016 01-16-2016 Chronic Essential hypertension (5 sources) Essential hypertension; Translations: [Essential (primary) hypertension] Onset: 05-17-2006 01-07-2015 Chronic Mood disorders (5 sources) Depressive disorder; Translations: [Depression] Onset: 03-27-2010 03-27-2010 Chronic Osteoarthritis (2 sources) Primary gonarthrosis, bilateral; Translations: [Bilateral primary osteoarthritis of knee] Chronic Other non-traumatic joint disorders (2 sources) Pain in right knee; Translations: [Pain in joint, lower leg] 12-17-2023 Episodic Other nutritional; endocrine; and metabolic disorders (2 sources) Obesity, unspecified Onset: 01-27-2018 Chronic Other nutritional; endocrine; and metabolic disorders (5 sources) Obesity; Translations: [Obesity, unspecified] Onset: 12-26-2005 07-22-2007 Chronic Other nutritional; endocrine; and metabolic disorders (5 sources) Metabolic syndrome X; Translations: [Metabolic syndrome] Onset: 02-13-2008 02-13-2008 Chronic Other nutritional; endocrine; and metabolic disorders (5 sources) Obese class II; Translations: [Obesity, unspecified] Onset: 01-27-2018 01-27-2018 Chronic Prolapse of female genital organs (5 sources) Incomplete uterovaginal prolapse; Translations: [Incomplete uterovaginal prolapse] Onset: 06-05-2007 07-22-2007 Chronic Thyroid disorders (10 sources) Non-toxic nodular goiter; Translations: [Nontoxic goiter, unspecified] Onset: 07-08-2007 02-20-2017 Chronic Past or Other Problems Problem Classification Problem Date Documented Date Episodic/Chronic Administrative/social admission (5 sources) Family disruption; Translations: [Other specified problems related to primary support group] Onset: 06-05-2007 11-25-2014 Episodic Nonmalignant breast conditions (5 sources) Hypertrophy of breast; Translations: [Hypertrophy of breast] Onset: 06-05-2007 07-22-2007 Episodic Other female genital disorders (3 sources) Hypertrophy of uterus; Translations: [Hypertrophy of uterus] Onset: 06-05-2007 Resolved: 07-08-2007 09-12-2023 Episodic Residual codes; unclassified (5 sources) Family history of ischemic heart disease; Translations: [Family history of ischemic heart disease and other diseases of the circulatory system] Onset: 07-21-2015 07-21-2015 Episodic Residual codes; unclassified (5 sources) Noncompliance with therapeutic regimen; Translations: [Patient's noncompliance with dietary regimen] Onset: 01-16-2016 01-16-2016 Episodic Spondylosis; intervertebral disc disorders; other back problems (3 sources) Neck pain; Translations: [Cervicalgia] Onset: 12-26-2005 Resolved: 02-05-2006 09-12-2023 Episodic Results Test Name Value Interpretation Reference Range Facility [facility] 12-18-2023 CNOV Office Visit (FRWS ) OPAL WILSON ([id number]) 1965 F [place] Date Time Provider Department 12/18/23 1:30 PM IFEANYI VALLADARES V [facility] During your visit today, we recorded the following information about you: Chantal Castillo MA 12/18/2023 1:50 PM Signed AMB ROOMING INTAKE FLOWSHEET DATA Risk Screening Do you have concerns about personal safety or safety in the home?: No Pain Pain Level: 5 Pain Location: (bilateral knees) Description: Aching, Throbbing Duration Amount of Time: (ongoing) Frequency: Intermittent Intervention/Comfort measure: Other: See comment (none) Patient here today for bilateral knee pain. States that she tries to avoid weight bearing. New x-ray today. Ifeanyi Valladares V, DO 12/18/2023 1:50 PM Signed SERVICE DATE: December 18, 2023 PCP: Esme Beckman MD Subjective Patient ID: Opal is a 58 year old female. Chief Complaint: Patient presents with: Bilateral Knee Pain PAIN EVALUATION 12/18/2023 1318 Pain Level: 5 Pain Location: -- bilateral knees Description: Aching;Throbbing Duration Amount of Time: -- ongoing Frequency: Intermittent Intervention/Comfort measure: Other: See comment none HPI Patient presents today for follow-up of bilateral knee pain. He has been 4 years since her last visit. She states that her daily function is still impaired by chronic knee pain. Makes it difficult for her to stand and walk greater than 200 feet. He has not had any recent falls or acute injuries to the knees. Review of Systems ACTIVE PROBLEM LIST OBESITY Essential Hypertension Hypertrophy of Breast Family Disruption Uterovaginal Prolapse, Incomplete Non-Toxic Nodular Goiter Dysmetabolic Syndrome X Depression Anxiety Other Adjustment Reaction With Predominant Disturbance of Other Emotions Lbbb (Left Bundle Branch Block) Family History of Ischemic Heart Disease Mixed Hyperlipidemia Noncompliance With Diet and Medication Regimen Goiter, Nodular Obesity, Class II, Bmi 35-39.9 PAST MEDICAL HISTORY Diagnosis Date Condyloma acuminatum Goiter, nodular Hypertension Mixed hyperlipidemia PAST SURGICAL HISTORY Procedure Laterality Date HAND SURGERY HX fingertips were crushed PAST SURGICAL HISTORY OF vaginal deliveries FAMILY HISTORY Problem Relation Age of Onset Coronary Artery Disease Mother MS GI Sister Gallbladder issues, required surgery Cancer Paternal Grandmother uterine other (Parathyroid gland abnormality) Maternal Grandmother Thyroid Maternal Aunt Goiter No Known Problems Father Social History Tobacco Use Smoking status: Never Smokeless tobacco: Never Vaping Use Vaping status: Never Used Substance Use Topics Alcohol use: No Drug use: No ALLERGIES Allergen Reactions Penicillins Rash She was young, and cannot recall details Sulfa (Sulfonamide * Hives MEDICATIONS: atorvastatin (LIPITOR) 10 mg tablet Take 10 mg by mouth once daily. aspirin, enteric coated (ADULT LOW DOSE ASPIRIN) 81 mg EC tablet Take 1 tablet by mouth once daily. lisinopril (PRINIVIL) 10 mg tablet Take 1 tablet by mouth once daily. iron,carb/vit C/vit B12/folic (IRON 100 PLUS ORAL) Take 1 tablet by mouth once daily. ibuprofen (MOTRIN) 800 mg tablet Take 1 tablet by mouth every 8 hours as needed. FOR PAIN. (Patient not taking: Reported on 12/18/2023) Allergies, medications, past surgical history, family history and past medical history were reviewed per this encounter. Objective Ortho Exam 58-year-old female in no acute distress. Evaluation of bilateral knee shows no redness warmth or effusions noted. There is crepitus with range of motion testing. No focal areas of instability with ligament testing. X-rays from today show progressive worsening of tricompartmental arthritis bilateral knees. Assessment/Plan ASSESSMENT Diagnosis Bilateral knee osteoarthritis No orders found for this visit on 12/18/23. PLAN Treatment options discussed today including physical therapy, bracing, medication, Visco supplement injections. Patient is given information on Durolane injections for the knees which she will consider at a later date. FOLLOW-UP: No follow-ups on file. PRN SIGNATURE: Ifeanyi Valladares DO PATIENT NAME: Opal Wilson DATE: December 18, 2023 TIME: 1:48 PM Allergies As of Date: 12/18/2023 Noted Allergy Reaction PENICILLINS 08/01/2005 2 - Rash Comments: She was young, and cannot recall details SULFA (SULFONAMIDE ANTIBIOTICS) 08/01/2005 4 - Hives Date Reviewed: 12/18/2023 Reviewed by: Chantal Castillo MA - Fully Assessed Reason for Visit: Bilateral Knee Pain [1210] Primary Visit Diagnosis:Primary osteoarthritis involving multiple joints [M15.0] Prescriptions as of 12/18/2023 - atorvastatin (LIPITOR) 10 mg tablet Take 10 mg by mouth once daily. - iron,carb/vit C/vit B12/ (more content not included)... Normal [facility] CNPNon 08-04-2019 CNPN Telephone (AGENDOG) RIKAOPAL ([id number]) 1965 F Date Time Provider Department 08/04/19 LEANNA BETTS AGERICK During your visit today, we recorded the following information about you: Renata Rodriguez 08/04/2019 2:23 PM Signed Patient calls left a voicemail message stating that she needs a copy of her medical records, [place] specifically. I saw a JT form in the system from [facility] so I called pt to verify where the medical record need to be sent and she finally said dr king michelle told her that we had already received the request back in June and they should have records. I advised her to check with them to see if they received and if not to have them specifically request what item is needed. Thank you Iris Kevin Allergies As of Date: 08/04/2019 Noted Allergy Reaction PENICILLINS 08/01/2005 2 - Rash Comments: She was young, and cannot recall details SULFA (SULFONAMIDE ANTIBIOTICS) 08/01/2005 4 - Hives Date Reviewed: 04/03/2019 Reviewed by: Katie Clark - Fully Assessed Reason for Visit: Release Of Medical Records [2017] Prescriptions as of 08/04/2019 Sig: ASPIRIN 81 MG TABLET,DELAYED * Take 1 tablet by mouth once d* LISINOPRIL 10 MG TABLET Take 1 tablet by mouth once d* Problem List As Of Date 08/04/2019 Noted Resolved Other and unspecified hyperlipidemia [E78.5] 12/26/2005 01/16/2016 CERVICALGIA [M54.2] 12/26/2005 02/05/2006 OBESITY [E66.9] 12/26/2005 Essential hypertension [I10] 05/17/2006 HYPERTROPHY OF UTERUS [N85.2] 06/05/2007 07/08/2007 HYPERTROPHY OF BREAST [N62] 06/05/2007 Family disruption [Z63.8] 06/05/2007 UTEROVAG PROLAPS-INCOMPL [N81.2] 06/05/2007 Non-toxic nodular goiter [E04.9] 07/08/2007 DYSMETABOLIC SYNDROME X [E88.81] 02/13/2008 Depression [F32.9] 03/27/2010 Anxiety [F41.9] 03/27/2010 Adj react-emotion NEC [F43.29] 07/17/2010 LBBB (left bundle branch block) [I44.7] 11/25/2014 Family history of ischemic heart disease [Z82.4*07/21/2015 Mixed hyperlipidemia [E78.2] 01/16/2016 Noncompliance with diet and medication regimen *01/16/2016 Goiter, nodular [E04.9] Obesity, Class II, BMI 35-39.9 [E66.9] 01/27/2018 Encounter Status:Closed by RENATA RODRIGUEZ on 08/04/19 [facility] Dav 07-08-2019 ARTURON Telephone (AGGENS6) OPAL MELÉNDEZ ([id number]) 1965 F Date Time Provider Department 07/08/19 OZZIE LY6 During your visit today, we recorded the following information about you: José Antoniooc ([employer]) [place] 07/08/2019 2:41 PM Signed LVM for pt to return call to schedule an appt with Dr. Ly. Hangoc ([employer]) Nov[place] Allergies As of Date: 07/08/2019 Noted Allergy Reaction PENICILLINS 08/01/2005 2 - Rash Comments: She was young, and cannot recall details SULFA (SULFONAMIDE ANTIBIOTICS) 08/01/2005 4 - Hives Date Reviewed: 04/03/2019 Reviewed by: Katie ([facility]) Amber - Fully Assessed Reason for Visit: Appointment [186] Prescriptions as of 07/08/2019 Sig: ASPIRIN 81 MG TABLET,DELAYED * Take 1 tablet by mouth once d* LISINOPRIL 10 MG TABLET Take 1 tablet by mouth once d* Problem List As Of Date 07/08/2019 Noted Resolved Other and unspecified hyperlipidemia [E78.5] 12/26/2005 01/16/2016 CERVICALGIA [M54.2] 12/26/2005 02/05/2006 OBESITY [E66.9] 12/26/2005 Essential hypertension [I10] 05/17/2006 HYPERTROPHY OF UTERUS [N85.2] 06/05/2007 07/08/2007 HYPERTROPHY OF BREAST [N62] 06/05/2007 Family disruption [Z63.8] 06/05/2007 UTEROVAG PROLAPS-INCOMPL [N81.2] 06/05/2007 Non-toxic nodular goiter [E04.9] 07/08/2007 DYSMETABOLIC SYNDROME X [E88.81] 02/13/2008 Depression [F32.9] 03/27/2010 Anxiety [F41.9] 03/27/2010 Adj react-emotion NEC [F43.29] 07/17/2010 LBBB (left bundle branch block) [I44.7] 11/25/2014 Family history of ischemic heart disease [Z82.4*07/21/2015 Mixed hyperlipidemia [E78.2] 01/16/2016 Noncompliance with diet and medication regimen *01/16/2016 Goiter, nodular [E04.9] Obesity, Class II, BMI 35-39.9 [E66.9] 01/27/2018 Encounter Status:Closed by MATT NOVOA CMA on 07/08/19 Normal [facility] Thyro. Peroxidase Abon 01-29 Thyroperoxidase Ab Qn < 28.0 Normal 0.0-60.0 [facility] Comment on above: Performed By: #### T PAB #### [place] [address] Thyroglobulin Abon 8 Thyroglobulin Ab Qn 28.4 [IU]/mL Normal 0.0-60.0 [facility] Comment on above: Performed By: #### T GAB2 #### [place] [address] Free T3on 01-27-2018 T3 free mass conc 3.1 pg/mL Normal 2.2-4.0 [facility] Comment on above: Performed By: #### F T3A #### [place] [address] Free Thyroxineon 01-27-2018 T4 free mass conc 0.96 ng/dL Normal 0.76-1.46 [facility] Comment on above: Performed By: #### F T4 #### [place] [address] TSH, 3rd generationon 2017 TSH, 3rd generation 1.080 uIU/mL Normal 0.358-3.740 [facility] Comment on above: Performed By: #### T SH3 #### [address] [address] Encounters Encounter Date Encounter Type Care Provider Facility Start: 12-18-2023 End: 12-18-2023 Patient encounter procedure Ifeanyi Valladares DO Work Phone: [facility] Comment on above: Primary osteoarthrit is involving multiple joints (Primary Dx) Start: 12-18-2023 End: 12-18-2023 ambulatory ESME BECKMAN Facility:[facility] Start: 12-18-2023 End: 12-18-2023 Subsequent hospital visit by physician Ghanshyam [facility] Work Phone: Radiology Comment on above: Pain in both knees, unspecified chronicity [M25.561, M25.562] Start: 12-17-2023 End: 12-17-2023 Orders Only Ifeanyi Valladares DO Work Phone: Orthopaedics Comment on above: Pain in both knees, unspecified chronicity (Primary Dx) Start: 10-12-2021 Telephone encounter Ifeanyi edward DO Work Phone: Orthopaedics Comment on above: handicap placard Start: 05-25-2021 Telephone encounter Ifeanyi edward DO Work Phone: Orthopaedics Comment on above: Letter for Jury Duty Start: 04-08-2018 End: 04-08-2018 Patient encounter procedure OZZIE LY Facility:[facility] Start: 01-27-2018 End: 01-28-2018 Patient encounter procedure LEANNA BETTS Facility:[facility] Start: 01-27-2018 End: 01-27-2018 Patient encounter procedure LEANNA BETTS Facility:[facility] Procedures Date Procedure Procedure Detail Performing Clinician Start: 12-06-2016 Lipid 1996 panel - S cher or Plasma Ifeanyi Valladares V, DO Work Phone: Start: 01-01-2006 Mammography Ifeanyi edward V, DO Work Phone: Plan of Treatment Date Care Activity Detail Author Start: 08-11-2026 Screening for malign ant neoplasm of colon [facility] Start: 12-18-2023 End: 12-18-2023 Patient encounter procedure Radiology Comment on above: Pain in both knees, unspecified chronicity [M25.561, M25.562] Bilateral knee pain Start: 11-03-2023 Covid-19 Vaccine ( season) Covid-19 Vaccine () [facility] Start: 11-03-2023 Influenza vaccination Influenza Vacc ine (#1) [facility] Start: 02-10-2023 HPV TESTING HPV TESTING [facility] Start: 02-10-2023 PAP TESTING PAP TESTING [facility] Start: 02-10-2023 Screening for malign ant neoplasm of cervix Cervical Cancer Screening [facility] Start: 12-06-2021 Lipid panel Lipid Screening [facility] Start: 12-06-2021 LIPID SCREEN LIPID SCREEN [facility] Start: 11-02-2021 Influenza vaccination INFLUENZA (#1) [facility] Start: 02-10-2021 Screening for malign ant neoplasm of cervix Cervical Cancer Screening [facility] Start: 11-02-2020 Influenza vaccination INFLUENZA (#1) [facility] Start: 12-07-2019 DIABETES SCREEN DIABETES SCREEN [facility] Start: 12-07-2019 Diabetes Screening Diabetes Screenin g [facility] Start: 10-03-2015 SHINGRIX VACCINE (1 of 2) SHINGRIX VACCINE (1 of 2) [facility] Start: 06-02-2013 Urine microalbumin profile [facility] Start: 2010 COLOGUARD (FIT-DNA) COLOGUARD (FIT-D NA) [facility] Start: 2010 Colonoscopy COLONOSCOPY [facility] Start: 2010 COLORECTAL CANCER SCREENING COLORECTAL CANCER SCREENING [facility] Start: [address] COLONOGRAPHY [facility] Start: 2010 FECAL OCCULT BLOOD FECAL OCCULT BLOO D [facility] Start: 2010 Screening for malign ant neoplasm of colon [facility] Start: 2010 SIGMOIDOSCOPY SIGMOIDOSCOPY [facility] Start: 01-01-2007 Mammography MAMMOGRAM [facility] Start: 01-01-2007 Screening for malign ant neoplasm of breast Mammogram Screening [facility] Start: 1984 Hepatitis B Vaccine (1 of 3 - 19+ 3-dose series) Hepatitis B Vaccine (1 of 3 - 19+ 3-dose series) [facility] Start: 10-03-1983 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 DISEASE VISIT ANNUAL PCP TEAM CHRONIC DISEASE VISIT [facility] Start: 10-03-1983 Anxiety Screening Anxiety Screening [facility] Start: 10-03-1983 BP CONTROLLED (<130/80) BP CONTROLLE D (<130/80) [facility] Start: 10-03-1983 Depression Screening Depression Scre ening [facility] Start: 1970 COVID-19 VACCINE (1) COVID-19 VACCIN E (1) [facility] Start: 04-04-1966 COVID-19 VACCINE (#1) COVID-19 VACCI NE (#1) [facility] Start: 1965 HEPATITIS B (1 of 3 - 3-dose series) HEPATITIS B (1 of 3 - 3-dose series) [facility] End: 01-15-2025 XR Knee - bilateral 4 Views XR KNEE GENERAL 4V AP BOTH/PA BOTH/LAT/MERC BILATERAL Radiology Routine Pain in both knees, unspecified chronicity 1 Occurrences starting 12/17/2023 until 01/15/2025 [facility] Work Phone: Comment on above: 1 Occurrences starti ng 12/17/2023 until 01/15/2025 XR Knee - bilateral 4 Views XR KNEE GENERAL 4V AP BOTH/PA BOTH/LAT/MERC BILATERAL Radiology Routine Pain in both knees, unspecified chronicity 12/18/2023 1:17 PM EDT [facility] Work Phone: Immunizations Immunization Date Immunization Notes Care Provider Hermes cabrera 04-27-2009 tuberculin skin test ; purified protein derivative solution, intradermal Ifeanyi Blaine V, DO Work Phone: [facility] Work Phone: 06-06-2006 tuberculin skin test ; purified protein derivative solution, intradermal Ifeanyi Blaine V, DO Work Phone: [facility] 06-03-2003 diphtheria and tetan us toxoids, adsorbed for pediatric use Ifeanyi Blaine V, DO Work Phone: [facility] 11-01-1993 diphtheria and tetan us toxoids, adsorbed for pediatric use Ifeanyi Blaine V, DO Work Phone: [facility] Payers Date Payer Category Payer Medicaid [facility] MEDIC [facility] MEDICAID [id number] 2019-Present [phone] [address] [place] [address] Medicaid [id number] 2019 Medicare [employer] MEDICARE [id number] 2019-Present [phone] [address] [place] [address] Medicare [id number] 2019 Medicare [id number] 2018 Medicare [employer] MEDICARE [id number] 2018-Present [phone] [address] [place] [address] Medicare [id number] 1965 Unknown [id number] 1965 Unknown [id number] 1965 Unknown [id number] Medicaid [id number] Medicare [id number] Social History Date Type Detail Facility Start: 11-22-2011 [facility] tobacco [facility] Start: 08-26-2020 End: 12-18-2023 Alcohol intake Current non-drinker of alcohol (finding) [facility] Start: 1965 Sex Assigned At Not on file [facility] Start: 03-26-2021 End: 04-25-2021 Exposure to SARS-CoV-2 (event) Not sure [facility] Start: 11-22-2011 Tobacco use and exposure Smoke less tobacco non-user [facility] Start: 08-26-2020 End: 12-18-2023 History of Social function [facility] Start: 08-26-2020 End: 12-18-2023 Tobacco use panel [facility] Adult Depression Scr eening Assessment 2 [facility] Clinical Notes 06-05-2007 to 12-18-2023 Ifeanyi Valladares V, DO - 12/18/2023 1:48 PM EDTRaChantal fischer MA - 12/18/2023 1:18 PM EDTYohana Pascual RT(R) - 12/18/2023 1:00 PM EDT Note Date & Type Note Facility 12-18-2023 Note HNO ID: [id number] Author: IFEANYI VALLADARES, DO Service: ? Author Type: Physician Type: Progress Notes Filed: 12/18/2023 13:50 Note Text: SERVICE DATE: December 18, 2023 PCP: Esme Beckman MD Subjective Patient ID: Opal is a 58 year old female. Chief Complaint: Patient presents with: Bilateral Knee Pain PAIN EVALUATION 12/18/2023 1318 Pain Level: 5 Pain Location: -- bilateral knees Description: Aching;Throbbing Duration Amount of Time: -- ongoing Frequency: Intermittent Intervention/Comfort measure: Other: See comment none HPI Patient presents today for follow-up of bilateral knee pain. He has been 4 years since her last visit. She states that her daily function is still impaired by chronic knee pain. Makes it difficult for her to stand and walk greater than 200 feet. He has not had any recent falls or acute injuries to the knees. Review of Systems ACTIVE PROBLEM LIST OBESITY Essential Hypertension Hypertrophy of Breast Family Disruption Uterovaginal Prolapse, Incomplete Non-Toxic Nodular Goiter Dysmetabolic Syndrome X Depression Anxiety Other Adjustment Reaction With Predominant Disturbance of Other Emotions Lbbb (Left Bundle Branch Block) Family History of Ischemic Heart Disease Mixed Hyperlipidemia Noncompliance With Diet and Medication Regimen Goiter, Nodular Obesity, Class II, Bmi 35-39.9 PAST MEDICAL HISTORY Diagnosis Date Condyloma acuminatum Goiter, nodular Hypertension Mixed hyperlipidemia PAST SURGICAL HISTORY Procedure Laterality Date HAND SURGERY HX fingertips were crushed PAST SURGICAL HISTORY OF vaginal deliveries FAMILY HISTORY Problem Relation Age of Onset Coronary Artery Disease Mother MS GI Sister Gallbladder issues, required surgery Cancer Paternal Grandmother uterine other (Parathyroid gland abnormality) Maternal Grandmother Thyroid Maternal Aunt Goiter No Known Problems Father Social History Tobacco Use Smoking status: Never Smokeless tobacco: Never Vaping Use Vaping status: Never Used Substance Use Topics Alcohol use: No Drug use: No ALLERGIES Allergen Reactions Penicillins Rash She was young, and cannot recall details Sulfa (Sulfonamide * Hives MEDICATIONS: atorvastatin (LIPITOR) 10 mg tablet Take 10 mg by mouth once daily. aspirin, enteric coated (ADULT LOW DOSE ASPIRIN) 81 mg EC tablet Take 1 tablet by mouth once daily. lisinopril (PRINIVIL) 10 mg tablet Take 1 tablet by mouth once daily. iron,carb/vit C/vit B12/folic (IRON 100 PLUS ORAL) Take 1 tablet by mouth once daily. ibuprofen (MOTRIN) 800 mg tablet Take 1 tablet by mouth every 8 hours as needed. FOR PAIN. (Patient not taking: Reported on 12/18/2023) Allergies, medications, past surgical history, family history and past medical history were reviewed per this encounter. Objective Ortho Exam 58-year-old female in no acute distress. Evaluation of bilateral knee shows no redness warmth or effusions noted. There is crepitus with range of motion testing. No focal areas of instability with ligament testing. X-rays from today show progressive worsening of tricompartmental arthritis bilateral knees. Assessment/Plan ASSESSMENT Diagnosis Bilateral knee osteoarthritis No orders found for this visit on 12/18/23. PLAN Treatment options discussed today including physical therapy, bracing, medication, Visco supplement injections. Patient is given information on Durolane injections for the knees which she will consider at a later date. FOLLOW-UP: No follow-ups on file. PRN SIGNATURE: Ifeanyi Valladares DO PATIENT NAME: Opal Wilson DATE: December 18, 2023 TIME: 1:48 PM [facility] 12-18-2023 History of Presen t illness Narrative Images from the original note were not included. SERVICE DATE: December 18, 2023 PCP: Esme Beckman MD Subjective Patient ID: Opal is a 58 year old female. Chief Complaint: Patient presents with: Bilateral Knee Pain PAIN EVALUATION 12/18/2023 1318 Pain Level: 5 Pain Location: -- bilateral knees Description: Aching;Throbbing Duration Amount of Time: -- ongoing Frequency: Intermittent Intervention/Comfort measure: Other: See comment none HPI Patient presents today for follow-up of bilateral knee pain. He has been 4 years since her last visit. She states that her daily function is still impaired by chronic knee pain. Makes it difficult for her to stand and walk greater than 200 feet. He has not had any recent falls or acute injuries to the knees. Review of Systems ACTIVE PROBLEM LIST OBESITY Essential Hypertension Hypertrophy of Breast Family Disruption Uterovaginal Prolapse, Incomplete Non-Toxic Nodular Goiter Dysmetabolic Syndrome X Depression Anxiety Other Adjustment Reaction With Predominant Disturbance of Other Emotions Lbbb (Left Bundle Branch Block) Family History of Ischemic Heart Disease Mixed Hyperlipidemia Noncompliance With Diet and Medication Regimen Goiter, Nodular Obesity, Class II, Bmi 35-39.9 PAST MEDICAL HISTORY Diagnosis Date Condyloma acuminatum Goiter, nodular Hypertension Mixed hyperlipidemia PAST SURGICAL HISTORY Procedure Laterality Date HAND SURGERY HX fingertips were crushed PAST SURGICAL HISTORY OF vaginal deliveries FAMILY HISTORY Problem Relation Age of Onset Coronary Artery Disease Mother MS GI Sister Gallbladder issues, required surgery Cancer Paternal Grandmother uterine other (Parathyroid gland abnormality) Maternal Grandmother Thyroid Maternal Aunt Goiter No Known Problems Father Social History Tobacco Use Smoking status: Never Smokeless tobacco: Never Vaping Use Vaping status: Never Used Substance Use Topics Alcohol use: No Drug use: No ALLERGIES Allergen Reactions Penicillins Rash She was young, and cannot recall details Sulfa (Sulfonamide * Hives MEDICATIONS: atorvastatin (LIPITOR) 10 mg tablet Take 10 mg by mouth once daily. aspirin, enteric coated (ADULT LOW DOSE ASPIRIN) 81 mg EC tablet Take 1 tablet by mouth once daily. lisinopril (PRINIVIL) 10 mg tablet Take 1 tablet by mouth once daily. iron,carb/vit C/vit B12/folic (IRON 100 PLUS ORAL) Take 1 tablet by mouth once daily. ibuprofen (MOTRIN) 800 mg tablet Take 1 tablet by mouth every 8 hours as needed. FOR PAIN. (Patient not taking: Reported on 12/18/2023) Allergies, medications, past surgical history, family history and past medical history were reviewed per this encounter. Objective Ortho Exam 58-year-old female in no acute distress. Evaluation of bilateral knee shows no redness warmth or effusions noted. There is crepitus with range of motion testing. No focal areas of instability with ligament testing. X-rays from today show progressive worsening of tricompartmental arthritis bilateral knees. Assessment/Plan ASSESSMENT Diagnosis Bilateral knee osteoarthritis No orders found for this visit on 12/18/23. PLAN Treatment options discussed today including physical therapy, bracing, medication, Visco supplement injections. Patient is given information on Durolane injections for the knees which she will consider at a later date. FOLLOW-UP: No follow-ups on file. PRN SIGNATURE: Ifeanyi Valladares DO PATIENT NAME: Opal Wilson DATE: December 18, 2023 TIME: 1:48 PM AMB ROOMING INTAKE FLOWSHEET DATA Risk Screening Do you have concerns about personal safety or safety in the home?: No Pain Pain Level: 5 Pain Location: (bilateral knees) Description: Aching, Throbbing Duration Amount of Time: (ongoing) Frequency: Intermittent Intervention/Comfort measure: Other: See comment (none) Patient here today for bilateral knee pain. States that she tries to avoid weight bearing. New x-ray today. documented in this encounter [facility] 12-18-2023 Note HNO ID: [id number] Author: CHANTAL CASTILLO MA Service: ? Author Type: Jigsawyer Type: Progress Notes Filed: 12/18/2023 13:50 Note Text: AMB ROOMING INTAKE FLOWSHEET DATA Risk Screening Do you have concerns about personal safety or safety in the home?: No Pain Pain Level: 5 Pain Location: (bilateral knees) Description: Aching, Throbbing Duration Amount of Time: (ongoing) Frequency: Intermittent Intervention/Comfort measure: Other: See comment (none) Patient here today for bilateral knee pain. States that she tries to avoid weight bearing. New x-ray today. [facility] 12-18-2023 History of Presen t illness Narrative Radiology Service Progress Note PATIENT NAME: Opal Wilson DATE OF SERVICE: December 18, 2023 TIME: 12:59 PM PATIENT IDENTITY VERIFICATION COMPLETED USING TWO (2) IDENTIFIERS: Name and Date of confirmed by patient verbally. FALL SCREENING: Has the patient had 2 falls in the last year or 1 fall with injury or currently using an Ambulatory Assistive Device (Walker, Cane, Wheelchair, Crutches, etc.)? Yes, Patient High Risk for Falls What interventions were put in place to prevent falls during this visit? Offered Assistance with Transfers/Clothing and Instructed Patient to Remain Seated (Not on Exam Table) Until Exam PATIENT GENDER DATA: Female. status: : No status: NO. PATIENT RELEVANT IMPLANT DATA REVIEWED: Not Applicable PATIENT PRESENTS WITH AN IMPLANTABLE OR ATTACHED PAYROLL ADMINISTRATOR: No RADIOLOGY DEPARTMENT: General X-ray: Exam(s) Completed: Lower Extremity X-Ray(s): Knee, AP / Lat / Tunne / Merchant Bilateral and Wt. Bearing PERIPHERAL IV DATA: Not applicable SIGNED BY: RT Dmitriy(Gayatri) December 18, 2023 12:59 PM documented in this encounter [facility] 12-18-2023 Note HNO ID: [id number] Author: YOHANA PASCUAL RT(R) Service: Radiology Author Type: Technologist Type: Progress Notes Filed: 12/18/2023 13:17 Note Text: Radiology Service Progress Note PATIENT NAME: Opal Wilson DATE OF SERVICE: December 18, 2023 TIME: 12:59 PM PATIENT IDENTITY VERIFICATION COMPLETED USING TWO (2) IDENTIFIERS: Name and Date of confirmed by patient verbally. FALL SCREENING: Has the patient had 2 falls in the last year or 1 fall with injury or currently using an Ambulatory Assistive Device (Walker, Cane, Wheelchair, Crutches, etc.)? Yes, Patient High Risk for Falls What interventions were put in place to prevent falls during this visit? Offered Assistance with Transfers/Clothing and Instructed Patient to Remain Seated (Not on Exam Table) Until Exam PATIENT GENDER DATA: Female. status: : No status: NO. PATIENT RELEVANT IMPLANT DATA REVIEWED: Not Applicable PATIENT PRESENTS WITH AN IMPLANTABLE OR ATTACHED PAYROLL ADMINISTRATOR: No RADIOLOGY DEPARTMENT: General X-ray: Exam(s) Completed: Lower Extremity X-Ray(s): Knee, AP / Lat / Tunne / Merchant Bilateral and Wt. Bearing PERIPHERAL IV DATA: Not applicable SIGNED BY: RT Dmitriy(R) December 18, 2023 12:59 PM [facility] 10-13-2021 Miscellaneous Notes Order signed, printed and mailed to patient at her request. Please sign Handicap parking order. Pt. calling in for renewal of handicap placard. Please call pt when ready for pickup. Yoly Oliva RN documented in this encounter [facility] 05-26-2021 Miscellaneous Notes Images from the original note were not included. Ifeanyi Valladares, V, DO You; [facility] Pool 2 hours ago (6:38 AM) correct- OA of knees is not a permissible excuse for jury duty in the eyes of the court. Physician letters are just recommendations for excuse from jury duty. The ultimate decision is made by the billing administrator. Patient has been contacted with message from Dr. Valladares and verbalized understanding. Patient called in requesting letter to excuse her from Jury Duty d/t osteoarthritis in her knees. Explained to patient that probably would not disqualify her from attending, but she would like for note to be sent to Dr. Valladares. documented in this encounter [facility] 06-05-2007 History of Past i llness Narrative Problem Noted Date Resolved Date Hypertrophy of uterus 06/05/2007 07/08/2007 Other and unspecified hyperlipidemia 12/26/2005 01/16/2016 Cervicalgia 12/26/2005 02/05/2006 documented as of this encounter (statuses as of 05/26/2021) [facility] History of Past illness Narrative* Problem Noted Date Resolved Date Hypertrophy of uterus 06/05/2007 07/08/2007 Other and unspecified hyperlipidemia 12/26/2005 01/16/2016 Cervicalgia 12/26/2005 02/05/2006 documented as of this encounter (statuses as of 10/13/2021) [facility] note* Diagnosis Primary osteoarthritis of both knees- Primary Primary localized osteoarthrosis, lower leg documented in this encounter [facility] note* Diagnosis Pain in both knees, unspecified chronicity- Primary documented in this encounter [facility] note* Diagnosis Primary osteoarthritis involving multiple joints- Primary documented in this encounter [facility] note* Diagnosis Pain in both knees, unspecified chronicity documented in this encounter [facility] for referral (narrative)* Diagnostic Procedure Only (Routine) - Authorized Specialty Diagnoses / Procedures Referred By Salud kessler Referred To Contact XR IMAGING Diagnoses Pain in both knees, unspecified chronicity Procedures XR KNEE GENERAL 4V AP BOTH/PA BOTH/LAT/MERC BILATERAL RADIOLOGIC EXAM KNEE COMPLETE 4/MORE VIEWS Ifeanyi Valladares V, DO [address] [place] [address] [place] [address] Referral ID Status Reason Start Date Expiration Date Visits Requested Visits Authorized [id number] Authorized Auto-Generat ed Referral 01/15/2025 1 1 [facility] for visit Narrative* Diagnostic Procedure Only (Routine) - Closed Specialty Diagnoses / Procedures Referred By Salud kessler Referred To Contact XR IMAGING Diagnoses Pain in both knees, unspecified chronicity Procedures XR KNEE GENERAL 4V AP BOTH/PA BOTH/LAT/MERC BILATERAL RADIOLOGIC EXAM KNEE COMPLETE 4/MORE VIEWS Ifeanyi Valladares V, DO [address] [place] [address] [place] [address] Referral ID Status Reason Start Date Expiration Date V isits Requested Visits Authorized [id number] Closed Auto-Generate d Referral 12/17/2023 01/15/2025 1 1 [facility] Summary Purpose Family History No Family History Records FoundNo Family History Records FoundNo Family History Records Found Advance Directives No Advanced Directives Records FoundNo Advanced Directives Records FoundNo Advanced Directives Records Found Additional Source Comments INFORMATION SOURCE (unrecogn ized section and content) DATE CREATED AUTHOR 05/06/2018 [facility] DATE CREATED AUTHOR AUTHOR'S ORGANIZ ATION 08/04/2019 [facility] DATE CREATED AUTHOR AUTHOR'S ORGANIZ ATION 12/20/2023 [facility] Source Comments (unrecognize d section and content) In the event this informatio n is protected by the Federal Confidentiality of Alcohol and Drug Abuse Patient Records regulations: The Federal rules restrict any use of the information to criminally investigate or prosecute any alcohol or drug abuse patient.[facility] the event this information is protected by the Federal Confidentiality of Alcohol and Drug Abuse Patient Records regulations: The Federal rules restrict any use of the information to criminally investigate or prosecute any alcohol or drug abuse patient.[facility] the event this information is protected by the Federal Confidentiality of Alcohol and Drug Abuse Patient Records regulations: The Federal rules restrict any use of the information to criminally investigate or prosecute any alcohol or drug abuse patient.[facility] the event this information is protected by the Federal Confidentiality of Alcohol and Drug Abuse Patient Records regulations: The Federal rules restrict any use of the information to criminally investigate or prosecute any alcohol or drug abuse patient.[facility] the event this information is protected by the Federal Confidentiality of Alcohol and Drug Abuse Patient Records regulations: The Federal rules restrict any use of the information to criminally investigate or prosecute any alcohol or drug abuse patient.[facility] Reason for Visit (unrecogniz ed section and content) Reason Comments Letter for Jury Duty Reason Comments handicap placard Reason Comments Bilateral Knee Pain Care Teams (unrecognized sec tion and content) Mental Telepathist Relationship Specialty Start Date End Date Esme Beckman MD [address] [place], [place] [id number] PCP - General Internal Medicine 07/08/19 Leanna Betts MD [address] [place], [place] [id number] Endocrinology 04/01/18 Lillian Ray MD [address] [place] [address] DELICATESSEN STORE MANAGER 04/01/18 Avery Francis [address] [place] [address] Cardiology 04/08/18 Mental Telepathist Relationship Specialty Start Date End Date Esme Beckman MD [address] [place], [place] [id number] PCP - General Internal Medicine 07/08/19 CecilLeanna padron MD [address] [place] [address] Endocrinology 04/01/18 Lillian Ray MD [address] [facility] [place] [address] DELICATESSEN STORE MANAGER 04/01/18 Avery Francis [address] [place] [address] Cardiology 04/08/18 Mental Telepathist Relationship Specialty Start Date End Date Esme Beckman MD [address] [place] [address] PCP - General Internal Medicine 07/08/19 Cecil, Leanna Garcia MD [address] [place] [address] Endocrinology 04/01/18 Lillian Ray MD [address] [facility] [place] [address] Gum Dipper 04/01/18 Avery Francis MD [address] [place] [id number] Cardiology 04/08/18 Mental Telepathist Relationship Specialty Start Date End Date Esme Beckman MD [address] [place] [address] PCP - General Internal Medicine 07/08/19 CecilLeanna padron MD [address] [place] [address] Endocrinology 04/01/18 Lillian Ray MD [address] [place] [address] Gum Dipper 04/01/18 Avery Francis MD [address] [address] [place] [address] Cardiology 04/08/18 FOR RECORDS PERTAINING [...] BE BASED ON THE PRIMARY CLINICAL RECORDS. [employer] provides no warranty or guarantee of the accuracy or completeness of information in this document.
[2023-12-25 13:11] LABS: Absolute Lymphocyte Count 1.76 X10^3/uL (0.83-4.51); Absolute Neutrophil Count 3.7 X10^3/uL (2.0-7.7); Basophil# 0.04 X10^3/uL; Basophil% 0.7 % (0-1); Eosinophil# 0.08 X10^3/uL; Eosinophils% 1.3 % (0-5); Hematocrit 37.7 % (37-47); Hemoglobin 11.6 g/dL (12.0-15.0); Lymphocyte # 1.76 X10^3/ul (0.83-4.51); Lymphocyte % 29.5 % (19-41); Mean Corp Hgb Conc 30.8 g/dL (32-36); Mean Corpuscular Hgb 23.7 pg (27.0-32.0); Mean Corpuscular Volume 77.1 fL (81-99); Mean Platelet Vol. 9.9 fl (6.2-12.0); Monocyte# 0.35 X10^3/uL; Monocyte% 5.9 % (0-10); NRBC Flagged by Analyzer 0 % (0-5); Neutrophil # 3.72 X10^3/uL (2.7-7.7); Neutrophil % 62.4 % (47-70); Platelet Count 395 K/mm3 (150-450); RBC Distribution Width CV 16.9 % (11.6-14.6); Red Blood Count 4.89 M/mm3 (4.2-5.4)
[2023-12-25 13:31] LABS: Hemoglobin A1c 5.8 % (3.8-5.6)
[2023-12-25 13:49] LABS: ALB/GLOB Ratio 0.8 RATIO (0.9-2.4); AST(SGOT) 18 U/L (15-37); Alanine Aminotransfer ALT/SGPT 30 U/L (13-56); Albumin, Serum 3.5 g/dL (3.2-5.0); Alkaline Phosphatase 74 U/L (45-117); Anion Gap 6 (5-15); BUN 11 mg/dL (7-18); BUN/Creat Ratio 17.5 RATIO (10-20); Calcium,Total 9.3 mg/dL (8.5-10.1); Chloride 104 mmol/L (98-107); Cholesterol 244 mg/dL (200); Creatinine, Serum 0.63 mg/dL (0.55-1.02); EST Glomerular Filtration Rate 104 mL/min (>60); Est Glom Filt Rate - Afr Amer 125 mL/min (>60); Globulin 4.5 g/dL (2.2-4.2); Glucose 101 mg/dL (74-106); High Density Lipoprotein 73 mg/dL; Iron 36 ug/dL (50-170); Iron Binding Capacity,Total 416 ug/dL (250-450); PERCENT IRON SATURATION 8.7 % (15.0-55.0); Sodium Level 137 mmol/L (136-145); Triglycerides 117 mg/dL; Very Low Density Lipoprotein 23 mg/dL (5-40)
== END | disposition home or self-care (01) ==
LOC: VSLAB 10:56
PROVIDERS: PCP Nurse Practitioner Family; Visit Provider Nurse Practitioner Family
DX: E04.2 Nontoxic multinodular goiter (principal); D50.9 Iron deficiency anemia, unspecified; I10 Essential (primary) hypertension; R73.03 Prediabetes; E78.5 Hyperlipidemia, unspecified
CPT/HCPCS: 36415; 80053; 80061; 83036; 83540; 83550; 84443; 85025

== ENCOUNTER → 2024-07-03 | Outpatient (CLI) | payer MEDICARE, MEDICAID, SELFPAY ==
--- NOTE | 2024-07-03 16:04 | US_ITS ---
PROCEDURE: THYROID 07/03/2024 REASON FOR EXAM: ONE YEAR SURVEILLANCE TECHNIQUE: Thyroid ultrasound COMPARISON: Thyroid ultrasound 03/15/2023. FINDINGS: Right thyroid lobe measures 5.7 x 2.0 x 1.6 cm. Left thyroid lobe measures 6.6 x 5.3 x 4.2 cm. Isthmus thickness is0.5 cm. Thyroid Size: Mildly enlarged Background Echotexture: Homogeneous. Thyroid Nodules: One left thyroid nodule is measured: Within the mid thyroid gland measuring 6.3 x 5.8 x 4.4 cm, mixed cystic and solid, isoechoic, wider than tall, smooth margins without calcification. TR-2, benign. No suspicious right thyroid nodules. US/Thyroid IMPRESSION: Mildly enlarged thyroid without suspicious nodule. Further dedicated thyroid u ltrasounds are NOT indicated by ACR TI-RADS criteria. Reading Location: [facility]
== END | disposition home or self-care (01) ==
LOC: US 16:02
PROVIDERS: PCP Nurse Practitioner Family; Referring Provider Nurse Practitioner Family; Visit Provider Nurse Practitioner Family
DX: E04.2 Nontoxic multinodular goiter (principal)
CPT/HCPCS: 76536

== ENCOUNTER → 2024-07-23 | Outpatient (CLI) | payer MEDICARE, MEDICAID, SELFPAY ==
[2024-07-23 12:47] LABS: Absolute Neutrophil Count 4.3 X10^3/uL (2.0-7.7); Basophil# 0.05 X10^3/uL; Basophil% 0.8 % (0-1); Eosinophil# 0.08 X10^3/uL; Eosinophils% 1.3 % (0-5); Hematocrit 33.9 % (37-47); Lymphocyte % 22.5 % (19-41); Mean Corp Hgb Conc 29.5 g/dL (32-36); Mean Corpuscular Hgb 21.6 pg (27.0-32.0); Mean Corpuscular Volume 73.4 fL (81-99); Mean Platelet Vol. 9.4 fl (6.2-12.0); Monocyte# 0.33 X10^3/uL; Monocyte% 5.3 % (0-10); NRBC Flagged by Analyzer 0 % (0-5); Neutrophil # 4.33 X10^3/uL (2.7-7.7); Neutrophil % 69.8 % (47-70); Platelet Count 446 K/mm3 (150-450); RBC Distribution Width CV 15.9 % (11.6-14.6); RBC Distribution Width SD 41.8 fl (35.1-43.9); Red Blood Count 4.62 M/mm3 (4.2-5.4); White Blood Count 6.2 K/mm3 (4.4-11.0)
[2024-07-23 13:40] LABS: Hemoglobin A1c 5.9 % (<=5.6)
[2024-07-23 13:50] LABS: ALB/GLOB Ratio 1.1 RATIO (0.9-2.4); AST(SGOT) 21 U/L (<=31); Alanine Aminotransfer ALT/SGPT 21 U/L (<=34); Albumin, Serum 4.2 g/dL (3.5-5.0); Alkaline Phosphatase 76 U/L (35-104); Anion Gap 13 (5-15); BUN 11 mg/dL (4-19); BUN/Creat Ratio 18.2 RATIO (10-20); Calcium,Total 9.8 mg/dL (7.6-11.0); Chloride 101 mmol/L (98-108); Cholesterol 222 mg/dL (<=200); Creatinine, Serum 0.58 mg/dL (0.70-1.20); EST Glomerular Filtration Rate 105 (>60); Globulin 3.8 g/dL (2.2-4.2); Glucose 103 mg/dL (70-99); High Density Lipoprotein 56 mg/dL; Low Density Lipoprotein Calc. 149 mg/dL; Potassium 4.3 mmol/L (3.3-5.1); Protein, Total 8.1 g/dL (5.9-8.4); Sodium Level 137 mmol/L (133-145); Total Bilirubin 0.26 mg/dL (0.00-1.30); Triglycerides 86 mg/dL; Very Low Density Lipoprotein 17 mg/dL (5-40); cholesterol:hdl ratio screen 3.99
== END | disposition home or self-care (01) ==
LOC: VSLAB 10:37
PROVIDERS: PCP Nurse Practitioner Family; Visit Provider Nurse Practitioner Family
DX: I10 Essential (primary) hypertension (principal); E78.5 Hyperlipidemia, unspecified; R73.03 Prediabetes
CPT/HCPCS: 36415; 80053; 80061; 83036; 84443; 85025